=== PATIENT | female | born 1980 | race Caucasian/White ===

== ENCOUNTER 2021-10-17 10:23 | Emergency (ER) | payer MEDICAID ==
[~2021-10-17] VITALS: Ht 162 cm; Wt 71.0 kg
[~2021-10-17 10:23] MED LIST: ACHD5005 PO; AMOX-358 PO; BUSP10TA95 PO; DICY20TA PO; DOCU-239 PO; IBUP-844 PO; LAMO25TA8; NAPR-1071 PO; NITR-65 PO; PREN1TAB79 PO; PROM25TA14 PO; PYRI25TA3 PO; QUET300T71; Seroquel
--- NOTE | 2021-10-17 10:46 | ED GU-Female ---
General Chief Complaint: - Reproductive Stated Complaint: MISCARRIAGE Source: patient Exam Limitations: no limitations History of Present Illness Date Seen by Provider: Oct 17, 2021 Time Seen by Provider: 10:26 Initial Comments 41yoF that is coming in due to a miscarriage. She had confirmed miscarriage at roughly 10 weeks and 6 days. Yesterday roughly 14 weeks and she completed the miscarriage at home. She is here for [facility] due to her blood type being B-. She has had that with each , and was told that she needed to have it within 72 hours of the miscarriage. She is denying any significant vaginal bleeding now, no abdominal pain, nausea, vomiting, fever, chills, weakness, numbness, or any other concerns. She went in for an appointment yesterday for consult for D&C. She had 1 D&C roughly in 2001 Allergies and Home Medications Allergies Coded Allergies: sulfamethoxazole (Verified Allergy, Unknown, 10/17/21) trimethoprim (Verified Allergy, Unknown, 10/17/21) Patient Home Medication List Home Medication List Reviewed: Yes Review of Systems Review of Systems Constitutional: No fever EENTM: No blurred vision Respiratory: no symptoms reported Cardiovascular: no symptoms reported Gastrointestinal: no symptoms reported Genitourinary: no symptoms reported Musculoskeletal: no symptoms reported Skin: no symptoms reported Psychiatric/Neurological: No Symptoms Reported Endocrine: No Symptoms Reported Hematologic/Lymphatic: No Symptoms Reported All Other Systemes Reviewed Negative Unless Noted: Yes Past Ghtxnil-Rdabcf-Hvnuqe Hx Patient Social History Tobacco Use?: Yes Past Medical History Surgeries: Yes (D&C) Physical Exam Vital Signs Vital Signs - First Documented 10/17/21 10:25 Temp 36.5 Pulse 73 Resp 18 B/P (MAP) 112/73 (86) Pulse Ox 100 O2 Delivery Room Air Capillary Refill : Height, Weight, BMI Height: '" Weight: lbs. oz. kg; BMI Method: General Appearance: WD/WN, no apparent distress HEENT: PERRL/EOMI, normal ENT inspection, pharynx normal Neck: non-tender, full range of motion, supple, normal inspection Cardiovascular: regular rate, rhythm, no edema, no murmur Respiratory: chest non-tender, lungs clear, normal breath sounds, no respiratory distress, no accessory muscle use Gastrointestinal: normal bowel sounds, non tender, soft; No distended, No guarding, No rebound Back: normal inspection, no CVA tenderness Extremities: normal range of motion, non-tender, normal inspection, no pedal edema, no calf tenderness, normal capillary refill Neurologic/Psychiatric: no motor/sensory deficits, alert, normal mood/affect Skin: normal color, warm/dry Lymphatic: no adenopathy Progress/Results/Core Measures Suspected Sepsis SIRS Temperature: Pulse: Respiratory Rate: Blood Pressure / Mean: Results/Orders My Orders Orders - BERRY PEREIRA MD Urine Bedside (10/17/21 10:33) Vital Signs/I&O 10/17/21 10:25 Temp 36.5 Pulse 73 Resp 18 B/P (MAP) 112/73 (86) Pulse Ox 100 O2 Delivery Room Air Capillary Refill : Progress Note : Progress Note 41-year-old female with above history coming in after a miscarriage in the setting of having the negative blood needing RhoGAM. ABCs were intact and vitals were stable on presentation. Unfortunately we do not have RhoGAM in [place] and also we don't have blood bank, so are unable to confirm her blood type. Update, I set up for transport for [facility], the patient says she would not have the ability to get back home. She has no friends that have gas that can drive her. I offered an ambulance there is so that she can at least get the RhoGAM in a timely manner. She says that she will try to contact somewhere friends and try to get there at some other time within the next 72 hours. She is able to fully verbalize back to me my concerns that if she does not get RhoGAM in a timely manner, future pregnancies could result in miscarriage. She understands this. Departure Impression Primary Impression: Miscarriage Disposition: 01 HOME, SELF-CARE Condition: Stable Departure-Patient Inst. Decision time for Depature: 10:57 Referrals: SELFDEISI MD (PCP) Primary Care Physician Patient Instructions: Miscarriage (DC) Add. Discharge Instructions: Please present to the nearest [facility] as soon as you can to try to get RhoGAM, [facility] does have information and is expecting you if that is more convenient for you Work/School Note: Work Release Form Date Seen in the Emergency Department: Oct 17, 2021 Return to Work: Oct 18, 2021 Restrictions: No Restrictions BERRY PEREIRA MD Oct 17, 2021 10:46
[2021-10-17 11:00] VITALS: BP 112/73
== END 2021-10-17 11:00 | disposition home or self-care (01) ==
LOC: EDUNIT# 10:23 → ER FS 10:28
DX: O03.9 Complete or unspecified spontaneous abortion without complication (principal)
CPT/HCPCS: 99282

== ENCOUNTER 2022-02-04 09:22 | Emergency (ER) | payer MEDICAID ==
[~2022-02-04] VITALS: Ht 162.5 cm; Wt 71.0 kg
--- NOTE | 2022-02-04 09:50 | ED Respiratory ---
General Chief Complaint: COVID19 Suspect/Confirmed Stated Complaint: LETHARGY History of Present Illness Date Seen by Provider: Feb 04, 2022 Time Seen by Provider: 09:49 Initial Comments 41-year-old female presents with just generalized malaise, feels dizzy. She thinks she might be dehydrated. She does have a family member with an illness. She denies chest pain, shortness of breath. Her symptoms are very vague. No reports of fever or other systemic complaints. Allergies and Home Medications Allergies Coded Allergies: sulfamethoxazole (Verified Allergy, Unknown, 10/17/21) trimethoprim (Verified Allergy, Unknown, 10/17/21) Patient Home Medication List Home Medication List Reviewed: Yes Buspirone HCl (Buspirone HCl) 10 Mg Tablet, 10 MG PO BID, (Reported) Entered as Reported by: SAM SHARMA on 12/17/181757 Docusate Sodium (Dok) 100 Mg Capsule, 100 MG PO BID PRN for CONSTIPATION-1ST LINE Prescribed by: BUZZ JOE on 07/01/201952 Hydrocodone Bit/Acetaminophen (HYDROcodone/APAP 5 MG/325 MG TAB) 1 Tab Tab, 1-2 EA PO Q6HR PRN for PAIN-MODERATE (5-7) Prescribed by: BUZZ JOE on 07/01/201952 Ibuprofen (Ibu) 600 Mg Tablet, 600 MG PO Q6H Prescribed by: BUZZ JOE on 07/01/201952 Vit W-Ca,Fe,FA(<1 mg) ( Vitamins) 1 Each Tablet, 1 EACH PO DAILY, (Reported) Entered as Reported by: BESSIE BAE on 05/27/20 141 Pyridoxine HCl (Vitamin B-6) 25 Mg Tablet, 25 MG PO DAILY, (Reported) Entered as Reported by: BESSIE BAE on 05/27/20 141 Review of Systems Review of Systems Constitutional: No chills; dizziness; No fever; malaise EENTM: no symptoms reported Respiratory: no symptoms reported Cardiovascular: no symptoms reported Gastrointestinal: no symptoms reported Genitourinary: no symptoms reported Musculoskeletal: no symptoms reported Skin: no symptoms reported Psychiatric/Neurological: No Symptoms Reported Past Nkczwbh-Dcgemo-Nmgqns Hx Immunizations Up To Date First/Initial COVID19 Vaccinat: 2020 Seasonal Allergies Seasonal Allergies: No Past Medical History Surgery/Hospitalization HX: D&C Surgeries: Yes (D&C) Respiratory: No Cardiac: No Neurological: No Genitourinary: No Gastrointestinal: No Musculoskeletal: Yes Chronic Back Pain Endocrine: No HEENT: No Cancer: No Psychosocial: Yes Depression Integumentary: No Blood Disorders: No Physical Exam Vital Signs - First Documented 02/04/22 09:56 Temp 36.3 Pulse 57 Resp 16 B/P (MAP) 138/80 (99) Pulse Ox 100 O2 Delivery Room Air Capillary Refill : Height: 5'4.00" Weight: 168lbs. oz. 76.219233sg; 27.00 BMI Method:Stated General Appearance: WD/WN, no apparent distress HEENT: PERRL/EOMI, normal ENT inspection Neck: supple Respiratory: lungs clear, normal breath sounds, no respiratory distress Cardiovascular: normal peripheral pulses, regular rate, rhythm Gastrointestinal: non tender, soft Extremities: normal range of motion, non-tender Neurologic/Psychiatric: alert, normal mood/affect, oriented x 3 Skin: normal color, warm/dry Progress/Results/Core Measures Suspected Sepsis SIRS Temperature: Pulse: Respiratory Rate: Laboratory Tests 02/04/22 10:15: White Blood Count 9.6 Blood Pressure / Mean: Laboratory Tests 02/04/22 10:15: Creatinine 0.73, Platelet Count 269, Total Bilirubin 0.2 Results/Orders Lab Results Laboratory Tests Test 02/04/22 09:40 02/04/22 10:15 02/04/22 10:31 Range/Units SARS-CoV-2 RNA (RT-PCR) Not Detected Not Detecte White Blood Count 9.6 4.3-11.0 10^3/uL Red Blood Count 4.82 3.80-5.11 10^6/uL Hemoglobin 13.5 11.5-16.0 g/dL Hematocrit 40 35-52 % Mean Corpuscular Volume 82 80-99 fL Mean Corpuscular Hemoglobin 28 25-34 pg Mean Corpuscular Hemoglobin Concent 34 32-36 g/dL Red Cell Distribution Width 14.3 10.0-14.5 % Platelet Count 269 130-400 10^3/uL Mean Platelet Volume 11.0 9.0-12.2 fL Immature Granulocyte % (Auto) 0 % Neutrophils (%) (Auto) 62 42-75 % Lymphocytes (%) (Auto) 30 12-44 % Monocytes (%) (Auto) 6 0-12 % Eosinophils (%) (Auto) 2 0-10 % Basophils (%) (Auto) 0 0-10 % Neutrophils # (Auto) 6.0 1.8-7.8 10^3/uL Lymphocytes # (Auto) 2.9 1.0-4.0 10^3/uL Monocytes # (Auto) 0.5 0.0-1.0 10^3/uL Eosinophils # (Auto) 0.2 0.0-0.3 10^3/uL Basophils # (Auto) 0.0 0.0-0.1 10^3/uL Immature Granulocyte # (Auto) 0.0 0.0-0.1 10^3/uL Sodium Level 139 135-145 MMOL/L Potassium Level 4.0 3.6-5.0 MMOL/L Chloride Level 104 98-107 MMOL/L Carbon Dioxide Level 24 21-32 MMOL/L Anion Gap 11 5-14 MMOL/L Blood Urea Nitrogen 11 7-18 MG/DL Creatinine 0.73 0.60-1.30 MG/DL Estimat Glomerular Filtration Rate 105 BUN/Creatinine Ratio 15 Glucose Level 91 70-105 MG/DL Calcium Level 8.8 8.5-10.1 MG/DL Corrected Calcium 8.7 8.5-10.1 MG/DL Total Bilirubin 0.2 0.1-1.0 MG/DL Aspartate Amino Transf (AST/SGOT) 16 5-34 U/L Alanine Aminotransferase (ALT/SGPT) 11 0-55 U/L Alkaline Phosphatase 53 40-136 U/L C-Reactive Protein < 0.30 <0.50 MG/DL Total Protein 6.7 6.4-8.2 GM/DL Albumin 4.1 3.2-4.5 GM/DL Urine Color YELLOW Urine Clarity CLEAR Urine pH 6.0 5-9 Urine Specific [place] 1.010 L 1.016-1.022 Urine Protein NEGATIVE NEGATIVE Urine Glucose (UA) NEGATIVE NEGATIVE Urine Ketones NEGATIVE NEGATIVE Urine Nitrite NEGATIVE NEGATIVE Urine Bilirubin NEGATIVE NEGATIVE Urine Urobilinogen 0.2 < = 1.0 MG/DL Urine Leukocyte Esterase 2+ H NEGATIVE Urine RBC (Auto) NEGATIVE NEGATIVE Urine RBC NONE /HPF Urine WBC 2-5 /HPF Urine Squamous Epithelial Cells 0-2 /HPF Urine Crystals NONE /LPF Urine Bacteria NEGATIVE /HPF Urine Casts NONE /LPF Urine Mucus NEGATIVE /LPF Urine Culture Indicated NO My Orders Orders - JAYY GRIFFITH DO Cbc With Automated Diff (02/04/22 09:56) Comprehensive Metabolic Panel (02/04/22 09:56) Ua Culture If Indicated (02/04/22 09:56) Crp Fs (02/04/22 09:56) Ns Iv 1000 Ml (Sodium Chloride 0.9%) (02/04/22 09:56) Covid 19 Inhouse Test (02/04/22 09:57) Vital Signs/I&O 02/04/22 02/04/22 09:56 11:38 Temp 36.3 36.3 Pulse 57 62 Resp 16 16 B/P (MAP) 138/80 (99) 142/75 Pulse Ox 100 100 O2 Delivery Room Air Room Air Capillary Refill : Progress Note : Progress Note Patient with no acute findings on physical exam. Patient is no signs of dehydration or significant illness. Patient is negative for COVID with no acute findings on labs. Patient likely has a viral syndrome since her son has some similar type symptoms. Patient stable and discharged Departure Impression Primary Impression: Viral syndrome Disposition: 01 HOME, SELF-CARE Condition: Stable Departure-Patient Inst. Referrals: SELFDEISI MD (PCP) Primary Care Physician Patient Instructions: Viral Syndrome (DC) Add. Discharge Instructions: Tylenol or ibuprofen as needed for fever or body aches Encourage you to drink plenty of fluids Follow-up with your primary care provider as needed All discharge instructions reviewed with patient and/or family. Voiced understanding. JAYY GRIFFITH DO Feb 04, 2022 09:49
[2022-02-04] MEDS ORDERED: NS IV 1000 ML 1,000 ML IV STA (09:56)
[2022-02-04 10:22] LABS: BASOPHILS % (AUTO) 0 % (0-10); EOSINOPHILS # (AUTO) 0.2 10^3/uL (0.0-0.3); EOSINOPHILS % (AUTO) 2 % (0-10); HEMATOCRIT 40 % (35-52); HEMOGLOBIN 13.5 g/dL (11.5-16.0); LYMPHOCYTES # (AUTO) 2.9 10^3/uL (1.0-4.0); LYMPHOCYTES % (AUTO) 30 % (12-44); MEAN CORPUSCULAR HEMOGLOBIN 28 pg (25-34); MEAN CORPUSCULAR HGB CONC 34 g/dL (32-36); MEAN CORPUSCULAR VOLUME 82 fL (80-99); MONOCYTES # (AUTO) 0.5 10^3/uL (0.0-1.0); MONOCYTES % (AUTO) 6 % (0-12); NEUTROPHILS % (AUTO) 62 % (42-75); PLATELET COUNT 269 10^3/uL (130-400); WHITE BLOOD COUNT 9.6 10^3/uL (4.3-11.0)
[2022-02-04 10:37] LABS: BILIRUBIN,URINE NEGATIVE (NEGATIVE); CLARITY,URINE CLEAR; COLOR,URINE YELLOW; GLUCOSE, URINE (UA) NEGATIVE (NEGATIVE); KETONES,URINE NEGATIVE (NEGATIVE); LEUKOCYTE ESTERASE ,URINE 2+ (NEGATIVE); NITRITE,URINE NEGATIVE (NEGATIVE); PROTEIN,URINE NEGATIVE (NEGATIVE)
[2022-02-04 10:46] LABS: BACTERIA,URINE NEGATIVE /HPF; SQUAMOUS EPITHELIAL CELL,UR 0-2 /HPF
[2022-02-04 10:53] LABS: SODIUM 139 MMOL/L (135-145)
[2022-02-04 10:54] LABS: ALANINE AMINOTRANSFERASE 11 U/L (0-55); ALBUMIN 4.1 GM/DL (3.2-4.5); ALKALINE PHOSPHATASE 53 U/L (40-136); BILIRUBIN,TOTAL 0.2 MG/DL (0.1-1.0); BUN/CREATININE RATIO 15; CALCIUM 8.8 MG/DL (8.5-10.1); CARBON DIOXIDE 24 MMOL/L (21-32); CHLORIDE 104 MMOL/L (98-107); CREATININE SERUM 0.73 MG/DL (0.60-1.30); GFR ESTIMATED 105; GLUCOSE 91 MG/DL (70-105); TOTAL PROTEIN 6.7 GM/DL (6.4-8.2)
[2022-02-04 11:38] VITALS: BP 142/75
== END 2022-02-04 11:39 | disposition home or self-care (01) ==
LOC: EDUNIT# 09:22 → ER FS 09:24
DX: B34.9 Viral infection, unspecified (principal); Z20.822 Contact with and (suspected) exposure to COVID-19; Z28.311 Partially vaccinated for COVID-19
CPT/HCPCS: 36415; 80053; 81000; 85025; 86141; 87636

== ENCOUNTER 2022-05-06 05:28 | Outpatient (CLI) | payer MEDICAID ==
[~2022-05-06] VITALS: Ht 162.6 cm; Wt 75.7 kg
[~2022-05-06 05:28] MED LIST changes: -QUET300T71; +QUET300T90
[2022-05-11] MEDS ORDERED: RT-ALBUINH INH (10:06)
[2022-05-11] MEDS ORDERED: PREG50CA2 PO (10:06)
[2022-05-11] MEDS ORDERED: DESV50TA PO (10:06)
[2022-05-11] MEDS ORDERED: BUSP15TA60 PO (10:06)
[2022-05-11] MEDS ORDERED: DICY10CA12 PO (10:06)
[2022-05-11] MEDS ORDERED: MELO15TA39 PO (10:06)
[2022-05-11] MEDS ORDERED: MV-M1TAB20 PO (10:06)
[2022-05-11] MEDS ORDERED: QUET300T2 PO (10:10)
[2022-05-13] MEDS ORDERED: ACHD5005 PO (12:09)
== END 2022-05-11 10:10 | disposition home or self-care (01) ==
LOC: PREOP 05:28
PROVIDERS: ATTEND Surgery
DX: Z01.818 Encounter for other preprocedural examination (principal)

== ENCOUNTER 2022-05-13 08:29 | Day surgery (SDC) | payer MEDICAID ==
[~2022-05-13] VITALS: Ht 162.6 cm; Wt 75.7 kg
[2022-05-13] VITALS (9 sets, daily range): BP systolic 105–143; BP diastolic 53–92
[~2022-05-13 08:29] MED LIST changes: +BUSP15TA60 PO; +DESV50TA PO; +DICY10CA12 PO; +MELO15TA39 PO; +MV-M1TAB20 PO; +PREG50CA2 PO; +QUET300T2 PO; +RT-ALBUINH INH
[2022-05-13] MEDS ORDERED: LIDOCAINE/EPI 1%-1:100,000 (XYLOCAINE) 30ML ONE (09:04)
--- NOTE | 2022-05-13 09:35 | Progress Note-Pre Operative ---
Pre-Operative Progress Note Date of Available H&P: May 05, 2022 Date H&P Reviewed: May 13, 2022 Time H&P Reviewed: 09:35 History & Physical: H&P Reviewed, Patient Examed, No changes noted Pre-Operative Diagnosis: CHOLELITHASIS, RUQ ABDOMINAL PAIN BRIGIDO LAL DO May 13, 2022 09:35
[2022-05-13] MEDS: LACTATED RINGERS 1,000 ML IV PRN ×2 (09:40→11:20)
[2022-05-13] MEDS ORDERED: ceFAZolin INJECTION 2,000 MG ONE (09:41)
[2022-05-13] MEDS ORDERED: NS (IVPB) 50 ML ONE (09:41)
[2022-05-13] MEDS ORDERED: proPOfol 200 MG/20 ML (DIPRIVAN) VIAL IV ONE (09:47)
[2022-05-13] MEDS ORDERED: ONDANSETRON 4 MG/2 ML (SDV) Z0FRAN ONE ×2 (09:47→12:25)
[2022-05-13] MEDS ORDERED: fentaNYL INJ 100 MCG/2 ML AMP ONE (09:47)
[2022-05-13] MEDS ORDERED: MIDAZOLAM 2 MG/2 ML (VERSED) VIAL ONE (09:47)
[2022-05-13] MEDS ORDERED: GLYCOPYRROLATE 0.2 MG/ML (ROBINUL) 2 ML VIAL ONE (09:47)
[2022-05-13] MEDS ORDERED: ROCURONIUM 50 MG/5 ML (ZEMURON) VIAL IV ONE (09:47)
[2022-05-13] MEDS ORDERED: LIDOCAINE PF 2% 5 ML (XYLOCAINE) VIAL ONE (09:47)
[2022-05-13] MEDS ORDERED: NEOSTIGMINE (BLOXIVERZ ) 1 MG/1ML 10 ML VIAL ONE (09:48)
[2022-05-13] MEDS ORDERED: ceFAZolin INJECTION 2,000 MG in NS (IVPB) 50 ML IV ONE (10:00)
[2022-05-13] MEDS ORDERED: HYDROmorphone 2 MG/ML VIAL (DILAUDID) ONE (11:25)
[2022-05-13] MEDS ORDERED: ACHD5005 PO (12:09)
--- NOTE | 2022-05-13 12:10 | Discharge Inst-Simple/Standard ---
Discharge Inst-Standard Discharge Medications New, Converted or Re-Newed RX: RX on Chart Patient Instructions/Follow Up Plan of Care/Instructions/FU: 2 weeks [place] Activity as Tolerated: No Discharge Diet: Regular Diet Other Inst to Patient Follow up Appt: Make appointment for 2 weeks. Instructions: No lifting greater than 10 pounds. No strenuous activity. May shower in 24 hours, no tub bath or soaking. Use incentive spirometer at home as directed. No Smoking Skin/Wound Care: You have special glue over incision, it will fall off on it's own. Symptoms to Report: Appetite Changes, Extremity Discoloration, Numbness/Tingling, Swelling Increased, Bleeding Excessive, Eyesight Changes, Pain Increased, Urine Color Change, Constipation(Persistent), Fever over 101 degree F, Pain/Pressure in ches t, Urinating Difficulty, Cough Up/Vomit Blood, Heart Beat Irreg/Pounding, Pain/Pressure in jaw, Vaginal Bleeding Increase, Cramps in feet or legs, Lightheadedness, Pain/Pressure in shoulder, Diarrhea(Persistent), Memory Changes Suddenly, Questions/Concerns, Weight gain consecutive days, Dizziness/Fainting, Nausea/Vomiting, Shortness of Breath, Weight gain over 2 pounds. If eyes or skin turn yellow notify physician. If questions or concerns contact your physician Or seek help at emergency department. BRIGIDO LAL DO May 13, 2022 12:10
--- NOTE | 2022-05-13 12:12 | Progress Note-Post Operative ---
Post-Operative Progess Note Surgeon (s)/Cake Icer (s) Surgeon BRIGIDO LAL DO Cake Icer: Dr. Johnson to assist in retraction dissection and closure. Pre-Operative Diagnosis CHOLELITHASIS, RUQ ABDOMINAL PAIN Post-Operative Diagnosis same Procedure & Operative Findings Date of Procedure 05/13/22 Procedure Performed/Findings PROCEDURE: Laparoscopic cholecystectomy with intraoperative cholangiogram. COMPLICATIONS: None. PROCEDURE: The patient was taken to the operating suite and was prepped and draped in sterile fashion. A surgical pause was performed. Just superior to the umbilicus, a 12 mm incision was made. Dissection was taken down to the fascia, which was then scored and grasped with a Taran and the abdomen was then entered. A 0 Vicryl suture was placed in a [id number] fashion and a Huertas trocar was placed and secured. Pneumoperitoneum was achieved. A 5mm trochar place in the subxyphoid and 2 in the right upper quadrant. The gallbladder was then grasped and elevated. The cystic duct, and cystic artery were then dissected out. Clip was placed on the distal portion of the cystic duct which was then partially transected. An arrow catheter was inserted into the duct. The cholangiogram was then performed. No filing defects and contrast made its way into the duodenum. Catheter removed. Clips were placed on proximal portion of the cystic duct and then the duct was then transected. Clips were placed along the proximal and distal portion of the cystic artery which was then transected. Hook cautery was used to dissect the gallbladder from the gallbladder fossa achieving hemostasis. The gallbladder was placed in an Endobag and removed through the 12 mm trocar site. The abdomen was then reinspected. Copious amounts of irrigation were used to irrigate the abdomen and there were no signs of active bleeding. Place a piece of Surgicel in to the gallbladder fossa. Hemostasis had been achieved. The 12 mm fascial defect was then closed with 0 Vicryl suture that had been placed in a [id number] fashion. The abdomen was then desufflated, the trocars were removed. The abdomen was then washed and dried. The skin was then closed using 4-0 Monocryl in a subcuticular fashion. The abdomen was washed and dried and Skin Affix was place over incisions. Patient tolerated the procedure well without any complications and was taken to the recovery room in stable condition. Anesthesia Type general Estimated Blood Loss Estimated blood loss (mL): minimal Specimens/Packing Specimens Removed gallbladder BRIGIDO LAL DO May 13, 2022 12:12
[2022-05-13] MEDS ORDERED: HYDROmorphone 2 MG/ML VIAL (DILAUDID) IV ONE (12:30)
[2022-05-13] MEDS ORDERED: fentaNYL INJ 100 MCG/2 ML AMP IVP ONE (12:30)
[2022-05-13] MEDS ORDERED: ONDANSETRON 4 MG/2 ML (SDV) Z0FRAN IVP PRN (12:30)
[2022-05-13] MEDS ORDERED: SEVOFLURANE (ULTANE) 15 ML INHAL SOLN ONE (12:31)
--- NOTE | 2022-05-13 18:06 | Diagnostic Imaging Report ---
INDICATION: Cholecystectomy. Intraoperative cholangiogram. COMPARISON: None available. IMPRESSION: Cini images show contrast opacifying the common bile duct which refluxes into normal caliber intrahepatic radicals and fills portions of the duodenum. No filling defects to indicate choledocholithiasis. 12 seconds of fluoroscopy time was utilized. Please see procedure report for more details. Dictated by: Dictated on workstation # [id number]
== END 2022-05-13 13:28 | disposition home or self-care (01) ==
LOC: SDC 08:29
PROVIDERS: ATTEND Surgery
DX: K80.10 Calculus of gallbladder with chronic cholecystitis without obstruction (principal); F17.210 Nicotine dependence, cigarettes, uncomplicated; Z86.16 Personal history of COVID-19
CPT/HCPCS: 76000; 84703; 87081

== ENCOUNTER 2022-05-18 15:09 | Inpatient (IN) | payer MEDICAID ==
[~2022-05-18] VITALS: Ht 162.6 cm; Wt 75.6 kg
[2022-05-18] MEDS ORDERED: NS IV 1000 ML 1,000 ML IV STA (15:17)
[2022-05-18] MEDS ORDERED: morphine INJ 10 MG/ML 1ML (SYR OR VIAL) IVP STA (15:17)
[2022-05-18 15:27] LABS: BASOPHILS % (AUTO) 0 % (0-10); EOSINOPHILS # (AUTO) 0.2 10^3/uL (0.0-0.3); EOSINOPHILS % (AUTO) 1 % (0-10); HEMATOCRIT 40 % (35-52); LYMPHOCYTES # (AUTO) 3.1 10^3/uL (1.0-4.0); LYMPHOCYTES % (AUTO) 18 % (12-44); MEAN CORPUSCULAR HEMOGLOBIN 30 pg (25-34); MEAN CORPUSCULAR HGB CONC 35 g/dL (32-36); MEAN CORPUSCULAR VOLUME 86 fL (80-99); MEAN PLATELET VOLUME 10.5 fL (9.0-12.2); MONOCYTES # (AUTO) 1.2 10^3/uL (0.0-1.0); MONOCYTES % (AUTO) 7 % (0-12); NEUTROPHILS # (AUTO) 12.2 10^3/uL (1.8-7.8); NEUTROPHILS % (AUTO) 73 % (42-75); PLATELET COUNT 314 10^3/uL (130-400); WHITE BLOOD COUNT 16.7 10^3/uL (4.3-11.0)
[2022-05-18] MEDS ORDERED: NS 100 ML (IVPB) BAG IV ONE (15:30)
[2022-05-18] MEDS ORDERED: HOLD METFORMIN - RECEIVED CONTRAST 20 ML VIAL IV SCH (15:30)
[2022-05-18] MEDS ORDERED: IOHEXOL 350 MG/ML 100 ML (OMNIPAQUE 350) VIAL IV ONE (15:30)
[2022-05-18 15:53] LABS: BILIRUBIN,TOTAL 0.4 MG/DL (0.1-1.0); CALCIUM 9.5 MG/DL (8.5-10.1); CREATININE SERUM 0.59 MG/DL (0.60-1.30); POTASSIUM 3.5 MMOL/L (3.6-5.0)
[2022-05-18 15:54] LABS: ALBUMIN 4.2 GM/DL (3.2-4.5); TOTAL PROTEIN 7.5 GM/DL (6.4-8.2)
--- NOTE | 2022-05-18 15:59 | ED Abdominal Pain ---
General Chief Complaint: Abdominal/GI Problems Stated Complaint: ABD PAIN Source of Information: Patient, EMS, Old Records (surgery notes from 05/[address] Lal) Exam Limitations: No Limitations History of Present Illness Date Seen by Provider: May 18, 2022 Time Seen by Provider: 15:09 Initial Comments 41 yo female presenting by EMS from home due to increasing right upper quadrant abdominal pain. She had laparoscopic cholecystectomy on May [address] Lal and felt like she was healing well and doing well. She did not feel like she was having a lot of pain and was getting back to more normal activities. She stated yesterday she had lifted her children in and out of crib and playpen and felt something pull. She has had increasing pain since then. The pain was more severe today and was not improving with taking her hydrocodone that she was prescribed. She denies having nausea, vomiting, constipation, diarrhea, pain with urination, fever, chills, chest pain, shortness of breath. She had the pain in the right upper quadrant and it was radiating to her right shoulder b lade area. Timing/Duration: 1-2 Days Severity/Quality: Severe, Sharp Location: RUQ Radiation: Scapula, Shoulder Activities at Onset: Activity (Lifting her children) Modifying Factors: Worsens With Coughing, Worsens With Movement, Worsens With Palpation Associated Symptoms: No Chest Pain, No Diaphoresis, No Fever/Chills, No Fatigue, No Headache, No Heartburn, No Nausea/Vomiting, No Rash, No Shortness of Air, No Swelling/Mass in Abdomen, No Syncope, No Weakness Allergies and Home Medications Allergies Coded Allergies: sulfamethoxazole (Verified Allergy, Unknown, RASH, 05/11/22) trimethoprim (Verified Allergy, Unknown, RASH, 05/11/22) Patient Home Medication List Home Medication List Reviewed: Yes Albuterol Sulfate (Ventolin Hfa) 1 Puff Puff, 2 PUFF INH Q4H, (Reported) Entered as Reported by: OLINDA GARNICA on 05/11/22 1006 Buspirone HCl (Buspirone HCl) 15 Mg Tablet, 15 MG PO BID, (Reported) Entered as Reported by: OLINDA GARNICA on 05/11/22 1006 Buspirone HCl (Buspirone HCl) 15 Mg Tablet, 15 MG PO BID, (Reported) Entered as Reported by: OLINDA GARNICA on 05/11/22 1006 Desvenlafaxine Succinate (Pristiq ER) 50 Mg Tab.er.24h, 50 MG PO DAILY, (Repo rted) Entered as Reported by: OLINDA GARNICA on 05/11/22 1006 Dicyclomine HCl (Dicyclomine HCl) 10 Mg Capsule, 10 MG PO BID, (Reported) Entered as Reported by: OLINDA GARNICA on 05/11/22 1006 Hydrocodone/Acetaminophen (Hydrocodone-Acetamin 5-325 mg) 5 Mg-325 Mg Tablet, 1 EACH PO Q4H PRN for PAIN-MODERATE (5-7) Prescribed by: BRIGIDO LAL on 05/13/22 1209 Meloxicam (Meloxicam) 15 Mg Tablet, 15 MG PO DAILY, (Reported) Entered as Reported by: OLINDA GARNICA on 05/11/22 1006 Mv-Mn/Iron/FA/Herbal Cmplx#190 (Vitamin D3 Complete Caplet) 18 Mg Iron-800 Mcg- 150 Mg Tablet, 1 EACH PO UD, (Reported) Entered as Reported by: OLINDA GARNICA on 05/11/22 100 Pregabalin (Lyrica) 50 Mg Capsule, 50 MG PO TID, (Reported) Entered as Reported by: OLINDA GARNICA on 05/11/22 100 Quetiapine Fumarate (Seroquel) 300 Mg Tablet, 300 MG PO HS, (Reported) Entered as Reported by: OLINDA GARNICA on 05/11/22 1010 Discontinued Medications Buspirone HCl (Buspirone HCl) 10 Mg Tablet, 10 MG PO BID, (Reported) Discontinued Reason: Prescription changed Entered as Reported by: SAM SHARMA on 12/17/18 1758 Docusate Sodium (Dok) 100 Mg Capsule, 100 MG PO BID PRN for CONSTIPATION-1ST LINE Discontinued Reason: No Longer Taking Prescribed by: BUZZ JOE on 07/01/201952 Hydrocodone Bit/Acetaminophen (HYDROcodone/APAP 5 MG/325 MG TAB) 1 Tab Tab, 1-2 EA PO Q6HR PRN for PAIN-MODERATE (5-7) Discontinued Reason: No Longer Taking Prescribed by: BUZZ JOE on 07/01/201952 Ibuprofen (Ibu) 600 Mg Tablet, 600 MG PO Q6H Discontinued Reason: No Longer Taking Prescribed by: BUZZ JOE on 07/01/201952 Vit W-Ca,Fe,FA(<1 mg) ( Vitamins) 1 Each Tablet, 1 EACH PO DAILY, (Reported) Discontinued Reason: No Longer Taking Entered as Reported by: BESSIE BAE on 05/27/20 1412 Pyridoxine HCl (Vitamin B-6) 25 Mg Tablet, 25 MG PO DAILY, (Reported) Discontinued Reason: No Longer Taking Entered as Reported by: BESSIE BAE on 05/27/20 141 Review of Systems Review of Systems Constitutional: No chills, No fever EENTM: No Symptoms Reported Respiratory: No Symptoms Reported Cardiovascular: No Symptoms Reported Gastrointestinal: See HPI Genitourinary: See HPI Musculoskeletal: see HPI Skin: change in color (Faint bruising at sites of laparoscopic surgery. There is no increased warmth, bright redness, fluctuance, drainage.) Psychiatric/Neurological: Anxiety Endocrine: No Symptoms Reported Hematologic/Lymphatic: Denies Blood Clots, Denies Easy Bleeding, Denies Easy Bruising Past Rbfwjhc-Unzrbh-Oiovzx Hx Immunizations Up To Date Tetanus Booster (TDap): Unknown First/Initial COVID19 Vaccinat: 2020 Second COVID19 Vaccination Mikie: 2020 Third COVID19 Vaccination Date: 2020 Seasonal Allergies Seasonal Allergies: No Past Medical History Surgery/Hospitalization HX: D&C;Depression; Bipolar; Chronic back pain; IBS; Cesearean; Surgeries: Yes (D&C, EXCISION RIGHT BREAST SPIDER BITE) Section, Gallbladder (05/13/2022) Respiratory: No Cardiac: No Neurological: No Genitourinary: No Gastrointestinal: Yes Gastroesophageal Reflux, Irritable Bowel Musculoskeletal: Yes Chronic Back Pain Endocrine: No HEENT: No Cancer: No Psychosocial: Yes (MANIC DEP W/PHYSCHOTIC FEATURE, PARONOID PERSONALITY DISORDER) Bipolar, Depression Integumentary: No Blood Disorders: No Physical Exam Vital Signs Vital Signs - First Documented 05/18/22 15:12 Temp 37.2 Pulse 82 Resp 20 B/P (MAP) 186/89 (121) Pulse Ox 98 O2 Delivery Room Air Capillary Refill : Height/Weight/BMI Height: 5'4.00" Weight: 168lbs. oz. 76.859791uy; 28.63 BMI Method:Stated General Appearance: WD/WN, moderate distress HEENT: PERRL/EOMI, pharynx normal Neck: non-tender, full range of motion, supple, normal inspection Respiratory: chest non-tender, lungs clear, normal breath sounds, no respirat ory distress, no accessory muscle use Cardiovascular: normal peripheral pulses, regular rate, rhythm Gastrointestinal: normal bowel sounds, soft, no pulsatile mass; No distended, No guarding, No rebound; tenderness (Right upper quadrant tender to palpation) Rectal: deferred Extremities: normal range of motion, non-tender, no calf tenderness, normal capillary refill Neurologic/Psychiatric: alert, oriented x 3 Skin: warm/dry, ecchymosis (Faint bruising around the laparoscopic sites without increased warmth, increased redness, fluctuance, or drainage.) Focused Exam Lactate Level 05/18/22 16:55: Lactic Acid Level 1.00 Lactic Acid Level Laboratory Tests Test 05/18/22 16:55 Lactic Acid Level 1.00 MMOL/L (0.50-2.00) Progress/Results/Core Measures Results/Orders Lab Results Laboratory Tests Test 05/18/22 15:17 05/18/22 16:13 05/18/22 16:55 Range/Units White Blood Count 16.7 H 4.3-11.0 10^3/uL Red Blood Count 4.66 3.80-5.11 10^6/uL Hemoglobin 14.0 11.5-16.0 g/dL Hematocrit 40 35-52 % Mean Corpuscular Volume 86 80-99 fL Mean Corpuscular Hemoglobin 30 25-34 pg Mean Corpuscular Hemoglobin Concent 35 32-36 g/dL Red Cell Distribution Width 14.1 10.0-14.5 % Platelet Count 314 130-400 10^3/uL Mean Platelet Volume 10.5 9.0-12.2 fL Immature Granulocyte % (Auto) 0 % Neutrophils (%) (Auto) 73 42-75 % Lymphocytes (%) (Auto) 18 12-44 % Monocytes (%) (Auto) 7 0-12 % Eosinophils (%) (Auto) 1 0-10 % Basophils (%) (Auto) 0 0-10 % Neutrophils # (Auto) 12.2 H 1.8-7.8 10^3/uL Lymphocytes # (Auto) 3.1 1.0-4.0 10^3/uL Monocytes # (Auto) 1.2 H 0.0-1.0 10^3/uL Eosinophils # (Auto) 0.2 0.0-0.3 10^3/uL Basophils # (Auto) 0.0 0.0-0.1 10^3/uL Immature Granulocyte # (Auto) 0.1 0.0-0.1 10^3/uL Neutrophils % (Manual) 70 % Lymphocytes % (Manual) 20 % Monocytes % (Manual) 9 % Eosinophils % (Manual) 1 % Basophils % (Manual) 0 % Band Neutrophils 0 % Sodium Level 138 135-145 MMOL/L Potassium Level 3.5 L 3.6-5.0 MMOL/L Chloride Level 102 98-107 MMOL/L Carbon Dioxide Level 24 21-32 MMOL/L Anion Gap 12 5-14 MMOL/L Blood Urea Nitrogen 13 7-18 MG/DL Creatinine 0.59 L 0.60-1.30 MG/DL Estimat Glomerular Filtration Rate 115 BUN/Creatinine Ratio 22 Glucose Level 101 70-105 MG/DL Calcium Level 9.5 8.5-10.1 MG/DL Corrected Calcium 9.3 8.5-10.1 MG/DL Total Bilirubin 0.4 0.1-1.0 MG/DL Aspartate Amino Transf (AST/SGOT) 15 5-34 U/L Alanine Aminotransferase (ALT/SGPT) 19 0-55 U/L Alkaline Phosphatase 73 40-136 U/L Total Protein 7.5 6.4-8.2 GM/DL Albumin 4.2 3.2-4.5 GM/DL Lipase 15 8-78 U/L Urine Color YELLOW Urine Clarity CLEAR Urine pH 7.0 5-9 Urine Specific [place] 1.010 L 1.016-1.022 Urine Protein NEGATIVE NEGATIVE Urine Glucose (UA) NEGATIVE NEGATIVE Urine Ketones NEGATIVE NEGATIVE Urine Nitrite NEGATIVE NEGATIVE Urine Bilirubin NEGATIVE NEGATIVE Urine Urobilinogen 0.2 < = 1.0 MG/DL Urine Leukocyte Esterase TRACE H NEGATIVE Urine RBC (Auto) 1+ H NEGATIVE Urine RBC RARE /HPF Urine WBC 10-25 H /HPF Urine Squamous Epithelial Cells 2-5 /HPF Urine Crystals NONE /LPF Urine Bacteria TRACE /HPF Urine Casts NONE /LPF Urine Mucus NEGATIVE /LPF Urine Culture Indicated YES Lactic Acid Level 1.00 0.50-2.00 MMOL/L My Orders Orders - RIA JOSHUA MD Comprehensive Metabolic Panel (05/18/22 15:17) Lipase (05/18/22 15:17) Ua Culture If Indicated (05/18/22 15:17) Ed Iv/Invasive Line Start (05/18/22 15:17) Cbc With Automated Diff (05/18/22 15:17) Ct Abdomen/Pelvis W (05/18/22 15:17) Ns Iv 1000 Ml (Sodium Chloride 0.9%) (05/18/22 15:17) Morphine Injection (Morphine Injection (05/18/22 15:17) Iohexol Injection (Omnipaque 350 Mg/Ml 1 (05/18/22 15:30) Received Contrast (Hold Metformin- Contr (05/18/22 15:30) Ns (Ivpb) (Sodium Chloride 0.9% Ivpb Bag (05/18/22 15:30) Manual Differential (05/18/22 15:17) Fentanyl Inj (Sublimaze Injection) (05/18/22 16:12) Urine Culture (05/18/22 16:13) Blood Culture (05/18/22 16:41) Lactic Acid Analyzer (05/18/22 16:41) Piperacillin Sodium/Tazobactam (Zosyn Vi (05/18/22 16:42) Hydromorphone Injection (Dilaudid Inject (05/18/22 17:09) Lactated Ringers (Lr 1000 Ml Iv Solution (05/18/22 17:09) Medications Given in ED Current Medications Medications Dose Ordered Sig/Saige Route Start Time Stop Time Status Last Admin Dose Admin Iohexol 100 ml ONCE ONCE IV 05/18/22 15:30 05/18/22 15:31 DC 05/18/22 15:49 80 ML Sodium Chloride 100 ml ONCE ONCE IV 05/18/22 15:30 05/18/22 15:31 DC 05/18/22 15:49 100 ML Vital Signs/I&O 05/18/22 05/18/22 15:12 18:48 Temp 37.2 Pulse 82 88 Resp 20 16 B/P (MAP) 186/89 (121) 179/87 Pulse Ox 98 96 O2 Delivery Room Air Room Air Progress Progress Note #1: Progress Note Potential life-threatening conditions of abdominal abscess, bile leak, perforated viscus, pancreatitis, acute liver failure, acute renal failure, sepsis. Order labs to include CBC, chemistry, lipase, urinalysis. Order CT scan of the abdomen and pelvis with IV contrast to evaluate for fluid collection, bowel perforation, obstruction, colitis, diverticulitis, abscess at gallbladder fossa, pancreatitis. Give normal saline 1 L IV fluid bolus for hydration, morphine 4 mg IV x1 for pain since she had already taken hydrocodone around 1 PM. She denied having nausea or vomiting so no antiemetics were ordered but advised patient if she had any change in this to let us know and I can add the Zofran and on her medications. Progress Note #2: Progress Note CBC shows elevation of her white blood cell count to 16.7. She had no acute significant normality on her chemistry panel. Her liver enzymes were normal. She remained hemodynamically stable here in the ED. She was afebrile and not exhibiting signs of sepsis. She reports that the morphine has not helped much with her pain so we will try a dose of fentanyl 50 mcg IV x1. On my review and personal interpretation of the CT scan of her abdomen and pelvis with IV contrast it did appear that she had increased fluid in the gallbladder fossa area with surrounding inflammation. No definite signs of bowel perforation or pancreatitis. Awaiting radiology reading. Progress Note #3: Time: 16:33 Progress Note I reviewed the radiologist report on the CT scan of the abdomen and pelvis with IV contrast. They reported fluid collection in the gallbladder fossa and recommended HIDA scan for hepatobiliary evaluation. Concern for bile leak. I called and discussed the results with the surgeon Dr. Lal. I had reviewed his op note and report from May 13 when he performed her laparoscopic cholecystectomy. I reviewed the labs and CT findings with him. He recommended giving her Zosyn for potential infection and ordering a HIDA scan. Keep her n.p.o. for now and continue with IV fluids for hydration. Pain control and he requested that I write bridge orders for her as he was going into surgery. I reviewed the plan with the patient and she stated that the fentanyl had a little more for her pain but was still rating her pain 6 out of 10. We will try Dilaudid 0.5 mg IV and see if that does better. Updated her on staying n.p.o. as well as being admitted for IV fluids, antibiotics, nuclear medicine scan. She was agreeable with admission as she was still having severe pain. Diagnostic Imaging Diagonstic Imaging: CT Plain Films/CT/US/NM/MRI: abdomen, pelvis Comments [facility] [place] [place] NAME: JACOBY CARRASQUILLO REC#: [id number] PT STATUS: REG ER : 1980 PHYSICIAN: RIA JOSHUA MD ADMIT DATE: 05/18/22/ER FS Draft Date of Exam:05/18/22 CT ABDOMEN/PELVIS W PROCEDURE: CT abdomen and pelvis with contrast. TECHNIQUE: Multiple contiguous axial images were obtained through the abdomen and pelvis after administration of intravenous contrast. Auto Exposure Controls were utilized during the CT exam to meet ALARA standards for radiation dose reduction. All CT scans use one or more of the following dose optimizing techniques: automated exposure control, MA and/or KvP adjustment based on patient size and exam type or iterative reconstruction. INDICATION: Right upper quadrant abdominal pain. FINDINGS: There is mild hazy groundglass density in the lung bases which could be due to mild edema or pneumonitis. Small amount of gas is noted in the anterior mediastinum. Below the diaphragm, no focal hepatic abnormality is identified. There are surgical clips in the expected location of gallbladder fossa with fluid-containing structure extending caudally in the fossa. This may represent biloma or bile leak. Small amount of gas is associated with this collection of fluid. There is mild edema and/or inflammation along the hepatic flexure of the colon. No pancreatic, adrenal gland or splenic abnormality is identified. Several cortical cysts are noted in the upper pole of left kidney as well as in the lower pole of right kidney. There is no evidence of hydronephrosis. Unopacified bladder is unremarkable in appearance. No additional inflammation is identified. The appendix has a normal appearance. IMPRESSION: Fluid-containing structure in the gallbladder fossa may represent bile leak or developing biloma with mild adjacent edema and/or inflammation within the hepatic flexure of colon. Consideration could be given to hepatobiliary scan for assessment. Dictated on workstation # [id number] Dict: 05/18/22 1606 Trans: 05/18/22 1615 [id number] Interpreted by: BETH BLAND MD Electronically signed by: Reviewed: Reviewed by Me Departure Communication (Admissions) Time/Spoke to Admitting Phy: 16:34 D/w Dr. Lal about the presentation of patient and having increased pain with RUQ pain, elevated WBC count, normal LFTs and CT showing fluid in gallbladder fossa. will admit for pain control, keep NPO, order HIDA scan. Give Zosyn for her possible infection. Will add blood cultures and lactic acid. Impression Primary Impression: RUQ abdominal pain Additional Impression: S/P laparoscopic cholecystectomy Disposition: 30 STILL A PATIENT Condition: Stable Admissions Decision to Admit Reason: Admit from ER (General) Decision to Admit/Date: May 18, 2022 Time/Decision to Admit Time: 16:34 Departure-Patient Inst. Referrals: SELF,DEISI WHITTAKER (PCP/Family) Primary Care Physician RIA JOSHUA MD May 18, 2022 15:59
[2022-05-18] MEDS ORDERED: fentaNYL INJ 100 MCG/2 ML AMP IVP STA (16:12)
--- NOTE | 2022-05-18 16:16 | Diagnostic Imaging Report ---
PROCEDURE: CT abdomen and pelvis with contrast. TECHNIQUE: Multiple contiguous axial images were obtained through the abdomen and pelvis after administration of intravenous contrast. Auto Exposure Controls were utilized during the CT exam to meet ALARA standards for radiation dose reduction. All CT scans use one or more of the following dose optimizing techniques: automated exposure control, MA and/or KvP adjustment based on patient size and exam type or iterative reconstruction. INDICATION: Right upper quadrant abdominal pain. FINDINGS: There is mild hazy groundglass density in the lung bases which could be due to mild edema or pneumonitis. Small amount of gas is noted in the anterior mediastinum. Below the diaphragm, no focal hepatic abnormality is identified. There are surgical clips in the expected location of gallbladder fossa with fluid-containing structure extending caudally in the fossa. This may represent biloma or bile leak. Small amount of gas is associated with this collection of fluid. There is mild edema and/or inflammation along the hepatic flexure of the colon. No pancreatic, adrenal gland or splenic abnormality is identified. Several cortical cysts are noted in the upper pole of left kidney as well as in the lower pole of right kidney. There is no evidence of hydronephrosis. Unopacified bladder is unremarkable in appearance. No additional inflammation is identified. The appendix has a normal appearance. IMPRESSION: Fluid-containing structure in the gallbladder fossa may represent bile leak or developing biloma with mild adjacent edema and/or inflammation within the hepatic flexure of colon. Consideration could be given to hepatobiliary scan for assessment. Dictated by: Dictated on workstation # [id number]
[2022-05-18 16:22] LABS: BILIRUBIN,URINE NEGATIVE (NEGATIVE); CLARITY,URINE CLEAR; COLOR,URINE YELLOW; GLUCOSE, URINE (UA) NEGATIVE (NEGATIVE); KETONES,URINE NEGATIVE (NEGATIVE); LEUKOCYTE ESTERASE ,URINE TRACE (NEGATIVE); NITRITE,URINE NEGATIVE (NEGATIVE); PROTEIN,URINE NEGATIVE (NEGATIVE)
[2022-05-18 16:34] LABS: RBC,URINE RARE /HPF
[2022-05-18 16:35] LABS: BACTERIA,URINE TRACE /HPF
[2022-05-18] MEDS ORDERED: PIPERACILLIN SODIUM/TAZOBACTAM 4.5 GM in NS (IVPB) 100 ML IV STA (16:42)
[2022-05-18 17:04] LABS: BAND NEUTROPHILS 0 %; BASOPHILS % (MANUAL) 0 %; EOSINOPHILS % (MANUAL) 1 %; LYMPHOCYTES % (MANUAL) 20 %; MONOCYTES % (MANUAL) 9 %; NEUTROPHILS % (MANUAL) 70 %
[2022-05-18] MEDS ORDERED: HYDROmorphone 2 MG/ML VIAL (DILAUDID) IV STA (17:09)
[2022-05-18] MEDS ORDERED: LACTATED RINGERS 1,000 ML IV STA (17:09)
[2022-05-18] MEDS ORDERED: ONDANSETRON 4 MG/2 ML (SDV) Z0FRAN IV PRN (20:00)
[2022-05-18] MEDS: HYDROmorphone 2 MG/ML VIAL (DILAUDID) IV PRN ×2 (20:29→23:17)
[2022-05-18 20:30] VITALS: BP 157/88
[2022-05-18] MEDS: LACTATED RINGERS 1,000 ML IV SCH (20:31)
[2022-05-18] MEDS: PIPERACILLIN SODIUM/TAZOBACTAM 4.5 GM in NS (IVPB) 100 ML IV SCH (23:17)
[2022-05-18 23:26] VITALS: BP 147/96
[2022-05-19] MEDS: LACTATED RINGERS 1,000 ML IV SCH ×3 (01:56→20:03)
[2022-05-19] MEDS: HYDROmorphone 2 MG/ML VIAL (DILAUDID) IV PRN ×7 (01:56→20:17)
[2022-05-19 04:00] VITALS: BP 151/89
[2022-05-19 05:54] LABS: HEMATOCRIT 39 % (35-52); HEMOGLOBIN 13.4 g/dL (11.5-16.0); MEAN CORPUSCULAR HEMOGLOBIN 30 pg (25-34); MEAN CORPUSCULAR HGB CONC 34 g/dL (32-36); MEAN CORPUSCULAR VOLUME 88 fL (80-99); MEAN PLATELET VOLUME 10.6 fL (9.0-12.2); PLATELET COUNT 294 10^3/uL (130-400); WHITE BLOOD COUNT 17.5 10^3/uL (4.3-11.0)
[2022-05-19 06:05] LABS: ALBUMIN 3.9 GM/DL (3.2-4.5)
[2022-05-19 06:06] LABS: POTASSIUM 3.9 MMOL/L (3.6-5.0)
[2022-05-19 06:07] LABS: CALCIUM 9.1 MG/DL (8.5-10.1)
[2022-05-19 06:10] LABS: BILIRUBIN,TOTAL 0.8 MG/DL (0.1-1.0)
[2022-05-19 06:12] LABS: CREATININE SERUM 0.64 MG/DL (0.60-1.30)
--- NOTE | 2022-05-19 06:50 | Consultation - Surgery ---
ZHANNA WEINSTEIN 05/19/22 0650: History of Present Illness History of Present Illness Patient Consulted On(bobby/time) 05/19/22 06:41 Date Seen by Provider: May 19, 2022 Time Seen by Provider: 06:41 Reason for Visit: Abdominal Pain History of Present Illness 41 F with pmh of GERD and IBS s/p laproscopic cholecystectomy on 05/[address] Khan presents with 2 days of abdominal pain that she noticed after she began carrying her children. . Pain initially was sharp RUQ pain that radiates to rt shoulder blade and arm rated 9/10 and has since spread to LUQ that was not alleviated by her post-op hyodrocodone. Today, pts pain is 2/10 with appropriate pain control. Pt previously had no symptoms of pain after procedure on 05/13. Decreased intake of food and liquid since the start of the pain. Denies any n/v, SOB, CP, fever, chills, diarrhea, or urinary symptoms. NPO since midnight. Pt to have HIDA scan this morning. Allergies and Home Medications Allergies Coded Allergies: sulfamethoxazole (Verified Allergy, Unknown, RASH, 05/11/22) trimethoprim (Verified Allergy, Unknown, RASH, 05/11/22) Patient Home Medication List Home Medication List Reviewed: Yes Acetaminophen (Tylenol Extra Strength) 500 Mg Tablet, 1,000 MG PO Q8H PRN for PAIN-MILD (1-4), (Reported) Entered as Reported by: VELVET OVALLES on 05/19/221136 Last Action: Held Buspirone HCl (Buspirone HCl) 15 Mg Tablet, 15 MG PO BID, (Reported) Entered as Reported by: OLINDA GARNICA on 05/11/22 1006 Last Action: Continued Cholecalciferol (Vitamin D3) (Vitamin D3) 25 Mcg (1000 Unit) Capsule, 25 MCG PO DAILY, (Reported) Entered as Reported by: VELVET OVALLES on 05/19/221136 Last Action: Converted Cyanocobalamin (Vitamin B-12) (Vitamin B-12) 1,000 Mcg Tablet, 1,000 MCG PO DAILY, (Reported) Entered as Reported by: VELVET OVALLES on 05/19/227 Last Action: Continued Desvenlafaxine Succinate (Desvenlafaxine Succinate ER) 50 Mg Tab.er.24h, 50 MG PO DAILY, (Reported) Entered as Reported by: VELVET OVALLES on 05/19/221136 Last Action: Converted Dicyclomine HCl (Dicyclomine HCl) 10 Mg Capsule, 10 MG PO TID, (Reported) Entered as Reported by: OLINDA GARNICA on 05/11/221005 Last Action: Continued Hydrocodone/Acetaminophen (Hydrocodone-Acetamin 5-325 mg) 5 Mg-325 Mg Tablet, 1 TAB PO Q4H PRN for PAIN-MODERATE (5-7), (Reported) Entered as Reported by: VELVET OVALLES on 05/19/221136 Last Action: Held Meloxicam (Meloxicam) 15 Mg Tablet, 15 MG PO DAILY, (Reported) Entered as Reported by: OLINDA GARNICA on 05/11/221005 Last Action: Held Pregabalin (Pregabalin) 50 Mg Capsule, 50 MG PO TID, (Reported) Entered as Reported by: VELVET OVALLES on 05/19/221136 Last Action: Continued Quetiapine Fumarate (Quetiapine Fumarate) 300 Mg Tablet, 300 MG PO HS, (Reported) Entered as Reported by: VELVET OVALLES on 05/19/221136 Last Action: Converted Discontinued Medications Albuterol Sulfate (Ventolin Hfa) 1 Puff Puff, 2 PUFF INH Q4H, (Reported) Discontinued Reason: No Longer Taking Entered as Reported by: OLINDA GARNICA on 05/11/221005 Last Action: Discontinued Buspirone HCl (Buspirone HCl) 15 Mg Tablet, 15 MG PO BID, (Reported) Discontinued Reason: Duplicate Order Entered as Reported by: OLINDA GARNICA on 05/11/221005 Last Action: Discontinued Desvenlafaxine Succinate (Pristiq ER) 50 Mg Tab.er.24h, 50 MG PO DAILY, (Reported) Discontinued Reason: No Longer Taking Entered as Reported by: OLINDA GARNICA on 05/11/221005 Last Action: Discontinued Hydrocodone/Acetaminophen (Hydrocodone-Acetamin 5-325 mg) 5 Mg-325 Mg Tablet, 1 EACH PO Q4H PRN for PAIN-MODERATE (5-7) Discontinued Reason: No Longer Taking Prescribed by: BRIGIDO LAL on 05/13/22 1209 Last Action: Discontinued Mv-Mn/Iron/FA/Herbal Cmplx#190 (Vitamin D3 Complete Caplet) 18 Mg Iron-800 Mcg- 150 Mg Tablet, 1 EACH PO UD, (Reported) Discontinued Reason: No Longer Taking Entered as Reported by: OLINDA GARNICA on 05/11/22 1006 Last Action: Discontinued Pregabalin (Lyrica) 50 Mg Capsule, 50 MG PO TID, (Reported) Discontinued Reason: No Longer Taking Entered as Reported by: OLINDA GARNICA on 05/11/22 1006 Last Action: Discontinued Quetiapine Fumarate (Seroquel) 300 Mg Tablet, 300 MG PO HS, (Reported) Discontinued Reason: No Longer Taking Entered as Reported by: OLINDA GARNICA on 05/11/22 1010 Last Action: Discontinued Past Eribyqv-Pawaas-Osvuvn Hx Patient Social History Smoking Status: Current Everyday Smoker Type Used: Cigarettes 2nd Hand Smoke Exposure: Yes Recent Hopitalizations: No Alcohol Use?: No Have you traveled recently?: No Immunizations Up To Date Tetanus Booster (TDap): Unknown Date of Influenza Vaccine: Mar 18, 2022 Seasonal Allergies Seasonal Allergies: No Surgeries History of Surgeries: Yes (D&C, EXCISION RIGHT BREAST SPIDER BITE) Surgeries: Section, Gallbladder (05/13/2022) Respiratory History of Respiratory Disorde: No Cardiovascular History of Cardiac Disorders: No Neurological History of Neurological Disord: No Genitourinary History of Genitourinary Disor: No Gastrointestinal History of Gastrointestinal Di: Yes Gastrointestinal Disorders: Gastroesophageal Reflux, Irritable Bowel Musculoskeletal History of Musculoskeletal Dis: Yes Musculoskeletal Disorders: Chronic Back Pain Endocrine History of Endocrine Disorders: No HEENT History of HEENT Disorders: No Cancer History of Cancer: No Psychosocial History of Psychiatric Problem: Yes (MANIC DEP W/PHYSCHOTIC FEATURE, PARONOID PERSONALITY DISORDER) Behavioral Health Disorders: Bipolar, Depression Integumentary History of Skin or Integumenta: No Blood Transfusions History of Blood Disorders: No Review of Systems-General Constitutional: No chills, No diaphoresis, No fever EENTM: No blurred vision, No nose congestion, No throat pain Respiratory: No cough, No short of breath Cardiovascular: No chest pain, No palpitations Gastrointestinal: abdominal pain (RUQ LUQ); No constipation, No diarrhea, No dysphagia; loss of appetite; No nausea, No vomiting Genitourinary: No decreased output, No dysuria, No frequency Musculoskeletal: back pain (post RT shoulder ), muscle pain (rt scapula and arm); No neck pain Skin: No change in color, No change in hair/nails Psychiatric/Neurological: Denies Headache, Denies Weakness Physical Exam-General Problems Physical Exam Vital Signs Vital Signs - First Documented 05/18/22 15:12 Temp 37.2 Pulse 82 Resp 20 B/P (MAP) 186/89 (121) Pulse Ox 98 O2 Delivery Room Air Capillary Refill : Less Than 3 Seconds General Appearance: WD/WN, no apparent distress Eyes: Bilateral Eye Normal Inspection, Bilateral Eye PERRL, Bilateral Eye EOMI HEENT: PERRL/EOMI, normal ENT inspection, other (moist mucus membranes ) Neck: supple, normal inspection Respiratory: chest non-tender, lungs clear, normal breath sounds, no respiratory distress, no accessory muscle use Cardiovascular: regular rate, rhythm, no edema, no murmur Peripheral Pulses: 3+ Dorsalis Pedis (R), 3+ Left Dors-Pedis (L), 3+ Radial Pulses (R), 3+ Radial Pulses (L) Gastrointestinal: no pulsatile mass, abnormal bowel sounds (hypoactive), distended, guarding, tenderness (RUQ LUQ) Back: normal inspection; No decreased range of motion Extremities: normal inspection, no pedal edema, no calf tenderness, normal capillary refill, other (rt arm pain) Neurologic/Psychiatric: alert, normal mood/affect, oriented x 3 Skin: normal color, warm/dry Lymphatic: no adenopathy Data Review Labs Laboratory Tests 05/18/22 15:17: White Blood Count 16.7H, Red Blood Count 4.66, Hemoglobin 14.0, Hematocrit 40, Mean Corpuscular Volume 86, Mean Corpuscular Hemoglobin 30, Mean Corpuscular Hemoglobin Concent 35, Red Cell Distribution Width 14.1, Platelet Count 314, Mean Platelet Volume 10.5, Immature Granulocyte % (Auto) 0, Neutrophils (%) (Auto) 73, Lymphocytes (%) (Auto) 18, Monocytes (%) (Auto) 7, Eosinophils (%) (Auto) 1, Basophils (%) (Auto) 0, Neutrophils # (Auto) 12.2H, Lymphocytes # (Auto) 3.1, Monocytes # (Auto) 1.2H, Eosinophils # (Auto) 0.2, Basophils # (Auto) 0.0, Immature Granulocyte # (Auto) 0.1, Neutrophils % (Manual) 70, Lymphocytes % (Manual) 20, Monocytes % (Manual) 9, Eosinophils % (Manual) 1, Basophils % (Manual) 0, Band Neutrophils 0, Sodium Level 138, Potassium Level 3.5L, Chloride Level 102, Carbon Dioxide Level 24, Anion Gap 12, Blood Urea Nitrogen 13, Creatinine 0.59L, Estimat Glomerular Filtration Rate 115, BUN/Creatinine Ratio 22, Glucose Level 101, Calcium Level 9.5, Corrected Calcium 9.3, Total Bilirubin 0.4, Aspartate Amino Transf (AST/SGOT) 15, Alanine Aminotransferase (ALT/SGPT) 19, Alkaline Phosphatase 73, Total Protein 7.5, Albumin 4.2, Lipase 15 05/18/22 16:13: Urine Color YELLOW, Urine Clarity CLEAR, Urine pH 7.0, Urine Specific [place] 1 .010L, Urine Protein NEGATIVE, Urine Glucose (UA) NEGATIVE, Urine Ketones NEGATIVE, Urine Nitrite NEGATIVE, Urine Bilirubin NEGATIVE, Urine Urobilinogen 0.2, Urine Leukocyte Esterase TRACEH, Urine RBC (Auto) 1+H, Urine RBC RARE, Urine WBC 10-25H, Urine Squamous Epithelial Cells 2-5, Urine Crystals NONE, Urine Bacteria TRACE, Urine Casts NONE, Urine Mucus NEGATIVE, Urine Culture Indicated YES 05/18/22 16:55: Lactic Acid Level 1.00 05/19/22 05:30: White Blood Count 17.5H, Red Blood Count 4.50, Hemoglobin 13.4, Hematocrit 39, Mean Corpuscular Volume 88, Mean Corpuscular Hemoglobin 30, Mean Corpuscular Hemoglobin Concent 34, Red Cell Distribution Width 14.0, Platelet Count 294, Mean Platelet Volume 10.6, Sodium Level 135, Potassium Level 3.9, Chloride Level 106, Carbon Dioxide Level 21, Anion Gap 8, Blood Urea Nitrogen 11, Creatinine 0.64, Estimat Glomerular Filtration Rate 113, BUN/Creatinine Ratio 17, Glucose Level 113H, Calcium Level 9.1, Corrected Calcium 9.2, Total Bilirubin 0.8, Aspartate Amino Transf (AST/SGOT) 16, Alanine Aminotransferase (ALT/SGPT) 24, Alkaline Phosphatase 63, Total Protein 7.0, Albumin 3.9 Assessment/Plan Assessment/Plan Assessment/Plan Abdominal pain -CT 05/18/21 : Fluid-containing structure in the gallbladder fossa may represent bile leak or developing biloma with mild adjacent edema and/or inflammation within the hepatic flexure of colon. GERD IBS Leukocytosis Contine IV Abx therapy continue pain control continue NPO continue IV LR blood cultures pending continue to monitor electrolytes HIDA scan today -Impression:There is no evidence of biliary tract obstruction although activity does simulate in the gallbladder fossa. Postcholecystectomy this is likely related to bile leak and developing biloma without significant free dispersion during one hour of imaging. Pt to transfer today to GI for ERCP and possible IR drain placement. BRIGIDO LAL DO 05/19/22 6435: History of Present Illness History of Present Illness History of Present Illness 41 year old female who had lap chastity c ioc on 05/13. Was lifting her children yesterday and began having severe sharp pain in the right upper quadrant. 9/10 pain and radiated up to right shoulder. Pain currently under control with pain medication. Prior to onset of pain from lifting she states she was doing quite well. Due to the pain she went to ER and had ct and had findings suggestive of possible bile leak. Currently NPO. Allergies and Home Medications Allergies Coded Allergies: sulfamethoxazole (Verified Allergy, Unknown, RASH, 05/11/22) trimethoprim (Verified Allergy, Unknown, RASH, 05/11/22) Patient Home Medication List Home Medication List Reviewed: Yes Acetaminophen (Tylenol Extra Strength) 500 Mg Tablet, 1,000 MG PO Q8H PRN for PAIN-MILD (1-4), (Reported) Entered as Reported by: VELVET OVALLES on 05/19/221136 Last Action: Held Buspirone HCl (Buspirone HCl) 15 Mg Tablet, 15 MG PO BID, (Reported) Entered as Reported by: OLINDA GARNICA on 05/11/22 1006 Last Action: Continued Cholecalciferol (Vitamin D3) (Vitamin D3) 25 Mcg (1000 Unit) Capsule, 25 MCG PO DAILY, (Reported) Entered as Reported by: VELVET OVALLES on 05/19/221136 Last Action: Converted Cyanocobalamin (Vitamin B-12) (Vitamin B-12) 1,000 Mcg Tablet, 1,000 MCG PO DAILY, (Reported) Entered as Reported by: VELVET OVALLES on 05/19/221136 Last Action: Continued Desvenlafaxine Succinate (Desvenlafaxine Succinate ER) 50 Mg Tab.er.24h, 50 MG PO DAILY, (Reported) Entered as Reported by: VELVET OVALLES on 05/19/221136 Last Action: Converted Dicyclomine HCl (Dicyclomine HCl) 10 Mg Capsule, 10 MG PO TID, (Reported) Entered as Reported by: OLINDA GARNICA on 05/11/221005 Last Action: Continued Hydrocodone/Acetaminophen (Hydrocodone-Acetamin 5-325 mg) 5 Mg-325 Mg Tablet, 1 TAB PO Q4H PRN for PAIN-MODERATE (5-7), (Reported) Entered as Reported by: VELVET OVALLES on 05/19/221136 Last Action: Held Meloxicam (Meloxicam) 15 Mg Tablet, 15 MG PO DAILY, (Reported) Entered as Reported by: OLINDA GARNICA on 05/11/221005 Last Action: Held Pregabalin (Pregabalin) 50 Mg Capsule, 50 MG PO TID, (Reported) Entered as Reported by: VELVET OVALLES on 05/19/221136 Last Action: Continued Quetiapine Fumarate (Quetiapine Fumarate) 300 Mg Tablet, 300 MG PO HS, (Reported) Entered as Reported by: VELVET OVALLES on 05/19/221136 Last Action: Converted Discontinued Medications Albuterol Sulfate (Ventolin Hfa) 1 Puff Puff, 2 PUFF INH Q4H, (Reported) Discontinued Reason: No Longer Taking Entered as Reported by: OLINDA GARNICA on 05/11/221005 Last Action: Discontinued Buspirone HCl (Buspirone HCl) 15 Mg Tablet, 15 MG PO BID, (Reported) Discontinued Reason: Duplicate Order Entered as Reported by: OLINDA GARNICA on 05/11/221005 Last Action: Discontinued Desvenlafaxine Succinate (Pristiq ER) 50 Mg Tab.er.24h, 50 MG PO DAILY, (Reported) Discontinued Reason: No Longer Taking Entered as Reported by: OLINDA GARNICA on 05/11/221005 Last Action: Discontinued Hydrocodone/Acetaminophen (Hydrocodone-Acetamin 5-325 mg) 5 Mg-325 Mg Tablet, 1 EACH PO Q4H PRN for PAIN-MODERATE (5-7) Discontinued Reason: No Longer Taking Prescribed by: BRIGIDO LAL on 05/13/22 1209 Last Action: Discontinued Mv-Mn/Iron/FA/Herbal Cmplx#190 (Vitamin D3 Complete Caplet) 18 Mg Iron-800 Mcg- 150 Mg Tablet, 1 EACH PO UD, (Reported) Discontinued Reason: No Longer Taking Entered as Reported by: OLINDA GARNICA on 05/11/22 1006 Last Action: Discontinued Pregabalin (Lyrica) 50 Mg Capsule, 50 MG PO TID, (Reported) Discontinued Reason: No Longer Taking Entered as Reported by: OLINDA AGRNICA on 05/11/22 1006 Last Action: Discontinued Quetiapine Fumarate (Seroquel) 300 Mg Tablet, 300 MG PO HS, (Reported) Discontinued Reason: No Longer Taking Entered as Reported by: OLINDA GARNICA on 05/11/22 1010 Last Action: Discontinued Past Ihpqgjc-Xyvkkr-Ioymgd Hx Reviewed Nursing Assessment Reviewed/Agree w Nursing PMH: Yes Family Medical History Significant Family History: No Pertinent Family Hx Review of Systems-General Constitutional: No chills, No diaphoresis EENTM: No blurred vision, No double vision Respiratory: No cough, No short of breath Cardiovascular: No chest pain, No palpitations Gastrointestinal: abdominal pain (RUQ), loss of appetite; No nausea, No vomiting Genitourinary: No decreased output, No frequency Musculoskeletal: back pain (post RT shoulder ), muscle pain (rt scapula and arm); No neck pain Skin: No change in color, No change in hair/nails Psychiatric/Neurological: Denies Weakness All Other Systems Reviewed Negative Unless Noted: Yes (Negative excepted noted.) Physical Exam-General Problems Physical Exam General Appearance: WD/WN, no apparent distress HEENT: PERRL/EOMI, normal ENT inspection, other (moist mucus membranes ) Neck: supple, normal inspection Respiratory: chest non-tender, no respiratory distress, no accessory muscle use Cardiovascular: regular rate, rhythm, no edema Gastrointestinal: normal bowel sounds, non tender; No guarding; tenderness (RUQ LUQ), other (incisions c/d/i no signs of infection) Rectal: deferred Back: normal inspection, decreased range of motion Neurologic/Psychiatric: alert, normal mood/affect, oriented x 3 Skin: normal color, warm/dry Lymphatic: no adenopathy Assessment/Plan Assessment/Plan Assessment/Plan Abdominal pain -CT 05/18/21 : Fluid-containing structure in the gallbladder fossa may represent bile leak or developing biloma with mild adjacent edema and/or inflammation within the hepatic flexure of colon. GERD IBS Leukocytosis IV Abx therapy-Zosyn incentive spirometry continue pain control continue NPO continue IV LR blood cultures pending continue to monitor electrolytes HIDA scan today -Impression:There is no evidence of biliary tract obstruction although activity does simulate in the gallbladder fossa. Postcholecystectomy this is likely related to bile leak and developing biloma without significant free dispersion during one hour of imaging. Pt to transfer today to for ERCP Attempted to transfer to [facility], [place], [facility] with ERCP capabilities, all are at capacity and will not accept. WIll keep npo, Iv fluids, Zosyn, Pain cotnrol. Supervisory-Addendum Brief Verification & Attestation Participated in pt care: history, MDM, physical Personally performed: exam, history, MDM, supervision of care Care discussed with: Medical Student Procedures: n/a Results interpretation: Verified all documentation Verification and Attestation of Medical Student E/M Service A medical student performed and documented this service in my presence. I reviewed and verified all information documented by the medical student and made modifications to such information, when appropriate. I personally performed the physical exam and medical decision making. Brigido Lal, May 19, 2022,19:01 ZHANNA WEINSTEIN May 19, 2022 06:50 BRIGIDO LAL DO May 19, 2022 18:55
[2022-05-19 07:19] VITALS: BP 147/85
--- NOTE | 2022-05-19 08:59 | Diagnostic Imaging Report ---
INDICATION: Recent laparoscopic cholecystectomy with fluid seen within the gallbladder fossa on CT scan one day earlier. After intravenous administration of 5.5 mCi technetium 99m mebrofenin, scintigraphic images reveal normal distribution of activity throughout the liver on the initial images. Within 10 minutes there is activity accumulating in the biliary tree passing through the common bile duct into small bowel. Within 15 minutes, activity does accumulate in the gallbladder fossa and along the inferior margin of the right hepatic lobe. No significant dispersion within the peritoneum is identified. IMPRESSION: There is no evidence of biliary tract obstruction although activity does simulate in the gallbladder fossa. Postcholecystectomy this is likely related to bile leak and developing biloma without significant free dispersion during one hour of imaging. Dictated by: Dictated on workstation # [id number]
[2022-05-19] MEDS: PIPERACILLIN SODIUM/TAZOBACTAM 4.5 GM in NS (IVPB) 100 ML IV SCH ×2 (09:05→15:06)
[2022-05-19 11:22] VITALS: BP 147/88
[2022-05-19] MEDS ORDERED: CYAN-41 PO (11:37)
[2022-05-19] MEDS ORDERED: DESV50TA18 PO (11:37)
[2022-05-19] MEDS ORDERED: QUET300T19 PO (11:37)
[2022-05-19] MEDS ORDERED: CHOL10007 PO (11:37)
[2022-05-19] MEDS ORDERED: ACET-2267 PO (11:37)
[2022-05-19] MEDS ORDERED: PREG50CA65 PO (11:37)
[2022-05-19] MEDS ORDERED: ACHD5005 PO (11:37)
[2022-05-19] MEDS ORDERED: NICOTINE 21 MG (NICODERM) PATCH TD NR (15:45)
[2022-05-19 16:15] VITALS: BP 153/85
[2022-05-19 19:40] VITALS: BP 152/91
[2022-05-19] MEDS: busPIRone 15 MG (BUSPAR) TABLET PO SCH (20:01)
[2022-05-19] MEDS: DICYCLOMINE 10 MG (BENTYL) CAP PO SCH (20:01)
[2022-05-19] MEDS: PREGABALIN 50 MG (LYRICA) CAP PO SCH (20:01)
[2022-05-19] MEDS: QUEtiapine 100 MG (SEROquel) TAB IMMEDIATE RELEASE PO SCH (20:01)
[2022-05-19] MEDS ORDERED: NON-FORMULARY MEDICATION 1 EA EA (Quetiapine Fumarate 300 MG) PO SCH (21:00)
[2022-05-20] MEDS: PIPERACILLIN SODIUM/TAZOBACTAM 4.5 GM in NS (IVPB) 100 ML IV SCH ×4 (00:12→23:29)
[2022-05-20 00:13] VITALS: BP 131/80
[2022-05-20] MEDS: LACTATED RINGERS 1,000 ML IV SCH ×2 (03:07→11:34)
[2022-05-20 04:06] VITALS: BP 124/76
[2022-05-20] MEDS: VENlafaxine XR 75 MG (EFFEXOR XR) CAP PO SCH (05:10)
--- NOTE | 2022-05-20 07:28 | Progress Note - Surgery ---
ZHANNA WEINSTEIN 05/20/22 0728: Subjective Date Seen by a Provider: May 20, 2022 Time Seen by a Provider: 07:23 Subjective/Events-last exam 41 F day 2 of admission for abdominal pain secondary to suspected bile leak and biloma formation is resting comfortably in bed. Pt reports no increase in abdom inal pain. Denies any n/v, fever, chills, urinary symptoms, CP, SOB. Pt has not had a BM since arrival. Still remains NPO. Attempts to transfer to failed yesterday, plans to attempt again today. Review of Systems General: No Chills, No Night Sweats HEENT: No Head Aches, No Dysphasia Pulmonary: No Dyspnea, No Cough Cardiovascular: No: Chest Pain, Palpitations Gastrointestinal: Abdominal Pain, Constipation; No: Nausea, Vomiting, Diarrhea Genitourinary: No Dysuria, No Frequency Musculoskeletal: shoulder pain, arm pain Neurological: No: Weakness, Numbness Focused Exam Lactate Level 05/18/22 16:55: Lactic Acid Level 1.00 Objective Exam Vital Signs Date Time Temp Pulse Resp B/P (MAP) Pulse Ox O2 Delivery O2 Flow Rate FiO2 05/20/22 04:06 37.3 97 30 124/76 (92) 94 Room Air 05/20/22 00:13 36.9 99 36 131/80 (97) 95 Room Air 05/19/22 20:46 98 Room Air 05/19/22 19:40 37.1 99 36 152/91 (111) 98 Room Air 05/19/22 19:05 Room Air 05/19/22 16:15 36.8 93 18 153/85 (107) 97 Room Air 05/19/22 11:22 36.3 96 17 147/88 (107) Room Air 05/19/22 08:00 95 Room Air I & O 05/20/22 07:00 Intake Total 0 ml Output Total 400 ml Balance -400 ml Capillary Refill : Less Than 3 Seconds General Appearance: No Apparent Distress, WD/WN, Anxious HEENT: PERRL/EOMI, Normal ENT Inspection Neck: Normal Inspection, Non Tender, Supple Respiratory: Chest Non Tender, Lungs Clear, Normal Breath Sounds, No Accessory Muscle Use, No Respiratory Distress Cardiovascular: Regular Rate, Rhythm, No Murmur, Normal Peripheral Pulses Peripheral Pulses: 3+ Dorsalis Pedis (R), 3+ Left Dors-Pedis (L), 3+ Radial Pulses (R), 3+ Radial Pulses (L) Gastrointestinal: normal bowel sounds, no organomegaly, no pulsatile mass; No guarding; tenderness (RUQ LUQ to palpation ), other (incisions c/d/i no signs of infection) Extremity: Normal Capillary Refill, Non Tender, No Calf Tenderness, No Pedal Edema Neurologic/Psychiatric: Alert, Oriented x3, No Motor/Sensory Deficits Skin: Normal Color, Warm/Dry Lymphatic: No Adenopathy Results Lab Microbiology 05/18/22 MRSA Screen - Final, Complete MRSA not isolated 05/18/22 Blood Culture - Preliminary, Resulted No growth 05/18/22 Urine Culture - Preliminary, Resulted Strep agalactiae Group B Assessment/Plan Assessment/Plan Assessment/Plan Abdominal pain -CT 05/18/21 : Fluid-containing structure in the gallbladder fossa may represent bile leak or developing biloma with mild adjacent edema and/or inflammation within the hepatic flexure of colon. GERD IBS Leukocytosis IV Abx therapy-Zosyn continue incentive spirometry continue pain control continue NPO continue IV LR continue home medications for depression/anxiety blood cultures pending continue to monitor electrolytes HIDA scan yesterday -Impression:There is no evidence of biliary tract obstruction although activity does simulate in the gallbladder fossa. Postcholecystectomy this is likely related to bile leak and developing biloma without significant free dispersion during one hour of imaging. Pt to transfer to [facility] today 05/20/2022 to GI for ERCP, pt agreeable to plan. BRIGIDO SOARES DO 05/20/22 1830: Subjective Subjective/Events-last exam Pain better today. NPO. No new complaints. Denies n/v fever sweats chills shortness of breath or chest pain at this time. Respirations were high overnight, this morning not, patient does not believe she as breathing that fast. Objective Exam General Appearance: No Apparent Distress, Anxious HEENT: PERRL/EOMI, Normal ENT Inspection Neck: Normal Inspection, Non Tender Respiratory: Chest Non Tender, No Accessory Muscle Use, No Respiratory Distress Cardiovascular: Regular Rate, Rhythm, No JVD Gastrointestinal: soft, tenderness (RUQ minimal to palpation ), other (incisions c/d/i no signs of infection) Extremity: Non Tender, No Calf Tenderness Neurologic/Psychiatric: Alert, Oriented x3, No Motor/Sensory Deficits Skin: Normal Color, Warm/Dry Lymphatic: No Adenopathy Assessment/Plan Assessment/Plan Assessment/Plan s/p lap chastity biliary leak abdominal pain ruq-improved NPO Zosyn Discussed with Dr. Rizzo plan for ERCP today, will return afterwards. -ERCP no obvious leak, could be duct of Luschka, small papillotomy and stent placed which should resolve this. stent to be removed in 1 month. Supervisory-Addendum Brief Verification & Attestation Participated in pt care: history, MDM, physical Personally performed: exam, history, MDM, supervision of care Care discussed with: Medical Student Procedures: n/a Results interpretation: Verified all documentation Verification and Attestation of Medical Student E/M Service A medical student performed and documented this service in my presence. I reviewed and verified all information documented by the medical student and made modifications to such information, when appropriate. I personally performed the physical exam and medical decision making. Brigido Soares, May 20, 2022,18:38 ZHANNA WEINSTEIN May 20, 2022 07:28 BRIGIDO SOARES DO May 20, 2022 18:30
[2022-05-20 08:00] VITALS: BP 136/76
[2022-05-20] MEDS: HYDROmorphone 2 MG/ML VIAL (DILAUDID) IV PRN (08:10)
[2022-05-20] MEDS: CYANOCOBALAMIN 1,000 MCG (VITAMIN B-12) TABLET PO SCH (08:10)
[2022-05-20] MEDS: busPIRone 15 MG (BUSPAR) TABLET PO SCH ×2 (08:11→21:30)
[2022-05-20] MEDS: DICYCLOMINE 10 MG (BENTYL) CAP PO SCH ×3 (08:11→21:31)
[2022-05-20] MEDS: PREGABALIN 50 MG (LYRICA) CAP PO SCH ×3 (08:11→21:31)
[2022-05-20] MEDS: NICOTINE 21 MG (NICODERM) PATCH TD SCH (08:11)
[2022-05-20] MEDS: VITAMIN D3 25 MCG (1,000 UNITS) TABLET PO SCH (08:11)
[2022-05-20] MEDS ORDERED: NON-FORMULARY MEDICATION 1 EA EA (Desvenlafaxine Succinate (Desvenlafaxine Succinate ER) 5 PO SCH (09:00)
[2022-05-20] MEDS ORDERED: NON-FORMULARY MEDICATION 1 EA EA (Cholecalciferol (Vitamin D3) (Vitamin D3) 25 MCG) PO SCH (09:00)
[2022-05-20] MEDS: NICOTINE PATCH REMOVAL TP SCH (09:12)
[2022-05-20 12:00] VITALS: BP 154/94
[2022-05-20 19:37] VITALS: BP_SYST 104; BP_SYST 149; BP_DIAS 56; BP_DIAS 88
[2022-05-20] MEDS: QUEtiapine 100 MG (SEROquel) TAB IMMEDIATE RELEASE PO SCH (21:30)
[2022-05-20] MEDS ORDERED: ACETAMINOPHEN 325 MG TABLET PO PRN (23:15)
[2022-05-20 23:26] VITALS: BP 120/68
[2022-05-21] MEDS: LACTATED RINGERS 1,000 ML IV SCH ×2 (02:42→04:29)
[2022-05-21 03:34] VITALS: BP 123/85
[2022-05-21] MEDS: VENlafaxine XR 75 MG (EFFEXOR XR) CAP PO SCH (06:44)
[2022-05-21] MEDS: PIPERACILLIN SODIUM/TAZOBACTAM 4.5 GM in NS (IVPB) 100 ML IV SCH (06:45)
[2022-05-21] MEDS: HYDROmorphone 2 MG/ML VIAL (DILAUDID) IV PRN (06:49)
--- NOTE | 2022-05-21 07:29 | Progress Note - Surgery ---
ZHANNA WEINSTEIN 05/21/22 0729: Subjective Date Seen by a Provider: May 21, 2022 Time Seen by a Provider: 07:24 Subjective/Events-last exam 41 F s/p day 1 from ERCP at [facility] by Dr. Kent is resting comfortably in bed. Pt claims she is in minimal amounts of abdominal pain in RUQ at this cal e and reports improvement in overall symptoms since yesterday. Wishes to decrease pain medication from dilaudid. Pt has not had a BM since procedure but is passing flatus. Denies any n/v SOB, fever, CP, or urinary symptoms. Pt was found to no bile leak on ERCP but may have possible duct of Luschka resulting in papillotomy and stent placement. Tolerating diet with no complaints. Review of Systems General: No Chills, No Night Sweats HEENT: No Head Aches, No Dysphasia Pulmonary: No Dyspnea, No Cough Cardiovascular: No: Chest Pain, Palpitations Gastrointestinal: Abdominal Pain (minimal ); No: Nausea, Vomiting Genitourinary: No Dysuria, No Incontinence Musculoskeletal: No: shoulder pain, back pain Neurological: No: Weakness, Numbness Focused Exam Lactate Level 05/18/22 16:55: Lactic Acid Level 1.00 Objective Exam Vital Signs Date Time Temp Pulse Resp B/P (MAP) Pulse Ox O2 Delivery O2 Flow Rate FiO2 05/21/22 03:34 36.4 85 18 123/85 (98) 97 Room Air 05/20/22 23:26 36.3 81 20 120/68 (85) 95 Room Air 05/20/22 20:00 Room Air 05/20/22 19:37 37.1 90 21 149/88 (108) 97 Room Air 05/20/22 16:10 Room Air 05/20/22 12:00 36.3 97 20 154/94 (114) 96 Room Air 05/20/22 08:00 36.8 102 16 136/76 (96) 94 Room Air 05/20/22 08:00 94 Room Air I & O 05/21/22 07:00 Intake Total 4140 ml Output Total 2350 ml Balance 1790 ml Capillary Refill : Less Than 3 Seconds General Appearance: No Apparent Distress, WD/WN HEENT: PERRL/EOMI, Moist Mucous Membranes Neck: Normal Inspection, Non Tender, Supple Respiratory: Chest Non Tender, Lungs Clear, Normal Breath Sounds, No Accessory Muscle Use, No Respiratory Distress Cardiovascular: Regular Rate, Rhythm, No Edema, No JVD, No Murmur, Normal Peripheral Pulses Peripheral Pulses: 3+ Dorsalis Pedis (R), 3+ Left Dors-Pedis (L), 3+ Radial Pulses (R), 3+ Radial Pulses (L) Gastrointestinal: soft, no organomegaly, no pulsatile mass, tenderness (RUQ minimal to palpation ), other (incisions c/d/i no signs of infection) Extremity: Normal Capillary Refill, Normal Inspection, Non Tender, No Calf Tenderness, No Pedal Edema Neurologic/Psychiatric: Alert, Oriented x3, No Motor/Sensory Deficits, Normal Mood/Affect Skin: Normal Color, Warm/Dry Lymphatic: No Adenopathy Results Lab Microbiology 05/18/22 MRSA Screen - Final, Complete MRSA not isolated 05/18/22 Blood Culture - Preliminary, Resulted No growth 05/18/22 Urine Culture - Final, Complete Strep agalactiae Group B See Comments Mixed Bacterial Mandy See Comments#2 Assessment/Plan Assessment/Plan Assessment/Plan s/p lap chastity and s/p ERCP abdominal pain ruq-improved UTI - culture resulted in Group B strep Advance diet continue Zosyn Dr. Rizzo completed ERCP yesterday, pt returned afterwards. decrease pain medications due to decrease in abdominal pain and pts wishes educated pt on post-hospital restrictions to allow for proper healing -ERCP no obvious leak, could be duct of Luschka, small papillotomy and stent placed which should resolve this. stent to be removed in 1 month. discussed findings with pt, pt agrees with plan to f/u in 1mo for removal DC home today BRIGIDO LAL DO 05/21/22 1041: Subjective Subjective/Events-last exam Feeling much better today. Not having any significant pain. S/p ERCP. Tolerating clears. Wanting to go home. Denies n/v fever sweats chills shortness of breath or chest pain. Objective Exam General Appearance: No Apparent Distress, WD/WN HEENT: PERRL/EOMI, Normal ENT Inspection Neck: Normal Inspection, Non Tender Respiratory: Chest Non Tender, No Accessory Muscle Use, No Respiratory Distress Cardiovascular: Regular Rate, Rhythm, No JVD Gastrointestinal: soft, tenderness (RUQ minimal to palpation ), other (incisions c/d/i no signs of infection) Extremity: Non Tender, No Calf Tenderness Neurologic/Psychiatric: Alert, Oriented x3 Skin: Normal Color, Warm/Dry Lymphatic: No Adenopathy Assessment/Plan Assessment/Plan Assessment/Plan s/p lap chastity and s/p ERCP abdominal pain ruq-improved UTI - culture resulted in Group B strep Advance diet Augmentin Dr. Rizzo completed ERCP yesterday, pt returned afterwards. decrease pain medications due to decrease in abdominal pain and pts wishes educated pt on post-hospital restrictions to allow for proper healing ERCP no obvious leak, could be duct of Luschka, small papillotomy and stent placed which should resolve this. stent to be removed in 1 month. discussed findings with pt, pt agrees with plan to f/u in 1mo for removal DC home today Final Diagnosis s/p lap chastity and s/p ERCP c pappilotomy and stent placement abdominal pain ruq-improved UTI Supervisory-Addendum Brief Verification & Attestation Participated in pt care: history, MDM, physical Personally performed: exam, history, MDM, supervision of care Care discussed with: Medical Student Procedures: n/a Results interpretation: Verified all documentation Verification and Attestation of Medical Student E/M Service A medical student performed and documented this service in my presence. I reviewed and verified all information documented by the medical student and made modifications to such information, when appropriate. I personally performed the physical exam and medical decision making. Brigido Lal, May 21, 2022,10:41 ZHANNA WEINSTEIN May 21, 2022 07:29 BRIGIDO LAL DO May 21, 2022 10:41
[2022-05-21 07:33] VITALS: BP 149/78
[2022-05-21] MEDS: NICOTINE PATCH REMOVAL TP SCH (08:34)
[2022-05-21] MEDS: VITAMIN D3 25 MCG (1,000 UNITS) TABLET PO SCH (08:34)
[2022-05-21] MEDS: busPIRone 15 MG (BUSPAR) TABLET PO SCH (08:34)
[2022-05-21] MEDS: DICYCLOMINE 10 MG (BENTYL) CAP PO SCH (08:34)
[2022-05-21] MEDS: PREGABALIN 50 MG (LYRICA) CAP PO SCH (08:35)
[2022-05-21] MEDS: CYANOCOBALAMIN 1,000 MCG (VITAMIN B-12) TABLET PO SCH (08:35)
[2022-05-21] MEDS: NICOTINE 21 MG (NICODERM) PATCH TD SCH (08:35)
[2022-05-21] MEDS ORDERED: AMOX1TAB12 PO (10:46)
--- NOTE | 2022-05-21 10:47 | Discharge Inst-Simple/Standard ---
Discharge Inst-Standard Discharge Medications New, Converted or Re-Newed RX: Transmitted to Pharmacy Patient Instructions/Follow Up Plan of Care/Instructions/FU: 3 weeks Rodger - To set up biliary Stent removal Activity as Tolerated: No Discharge Diet: Regular Diet Other Inst to Patient Follow up Appt: Make appointment for 3 week Rodger for discussing Stent removal and set up. Instructions: No lifting greater than 10 pounds. No strenuous activity. May shower in 24 hours, no tub bath or soaking. Use incentive spirometer at home as directed. No Smoking Skin/Wound Care: You have special glue over your incision that will fall off on it's own. Symptoms to Report: Appetite Changes, Extremity Discoloration, Numbness/Tingling, Swelling Increased, Bleeding Excessive, Eyesight Changes, Pain Increased, Urine Color Change, Constipation(Persistent), Fever over 101 degree F, Pain/Pressure in chest, Urinating Difficulty, Cough Up/Vomit Blood, Heart Beat Irreg/Pounding, Pain/Pressure in jaw, Vaginal Bleeding Increase, Cramps in feet or legs, Lightheadedness, Pain/Pressure in shoulder, Diarrhea(Persistent), Memory Changes Suddenly, Questions/Concerns, Weight gain consecutive days, Dizziness/Fainting, Nausea/Vomiting, Shortness of Breath, Weight gain over 2 pounds If questions or concerns contact your physician Or seek help at emergency department. BRIGIDO LAL DO May 21, 2022 10:47
[2022-05-21 11:23] VITALS: BP 149/78
== END 2022-05-21 11:27 | disposition home or self-care (01) | DRG 394 ==
LOC: EDUNIT# 15:09 → ER FS 15:13 → 4TH 19:35
PROVIDERS: ADMIT Surgery; ATTEND Surgery
DX: K91.89 Other postprocedural complications and disorders of digestive system (principal); N39.0 Urinary tract infection, site not specified; B96.89 Other specified bacterial agents as the cause of diseases classified elsewhere; F31.9 Bipolar disorder, unspecified; F41.9 Anxiety disorder, unspecified; K21.9 Gastro-esophageal reflux disease without esophagitis; K58.9 Irritable bowel syndrome, unspecified; Z88.2 Allergy status to sulfonamides; Z88.8 Allergy status to other drugs, medicaments and biological substances
CPT/HCPCS: 36415; 74177; 78226; 80053; 81000; 83605; 83690; 85007; 85027; 87040; 87081; 87088; 94664; Q9967

== ENCOUNTER 2022-06-23 05:51 | Outpatient (CLI) | payer MEDICAID ==
[~2022-06-23] VITALS: Ht 162.6 cm; Wt 75.8 kg
[~2022-06-23 05:51] MED LIST changes: +ACET-2267 PO; +AMOX1TAB12 PO; +CHOL10007 PO; +CYAN-41 PO; +DESV50TA18 PO; +PREG50CA65 PO; +QUET300T19 PO
[2022-06-23] MEDS ORDERED: PNV-9 PO (08:52)
[2022-06-23] MEDS ORDERED: MELO15TA39 PO (08:52)
[2022-06-23] MEDS ORDERED: QUET200T PO (08:52)
[2022-06-23] MEDS ORDERED: VARE1TAB28 PO (08:52)
[2022-06-23] MEDS ORDERED: NICO-533 TD (08:52)
[2022-06-23] MEDS ORDERED: RT-ALBUINH INH (08:52)
[2022-06-23] MEDS ORDERED: DESV50TA PO (08:52)
== END 2022-06-23 08:56 | disposition home or self-care (01) ==
LOC: PREOP 05:51
PROVIDERS: ATTEND Surgery
DX: Z01.818 Encounter for other preprocedural examination (principal)

== ENCOUNTER 2022-07-05 07:26 | Day surgery (SDC) | payer MEDICAID ==
[~2022-07-05] VITALS: Ht 162.6 cm; Wt 75.8 kg
[~2022-07-05 07:26] MED LIST changes: +NICO-533 TD; +PNV-9 PO; +QUET200T PO; +VARE1TAB28 PO
--- NOTE | 2022-07-05 07:36 | Progress Note-Pre Operative ---
Pre-Operative Progress Note Date H&P Reviewed: Jul 05, 2022 Time H&P Reviewed: 07:36 History & Physical: H&P Reviewed, Patient Examed, No changes noted Pre-Operative Diagnosis: hx biliary stent BRIGIDO LAL DO Jul 05, 2022 07:36
[2022-07-05] MEDS ORDERED: LACTATED RINGERS 1,000 ML IV ONE (07:44)
[2022-07-05 07:50] VITALS: BP 120/97
[2022-07-05] MEDS ORDERED: LACTATED RINGERS 1,000 ML IV STA (07:52)
[2022-07-05] MEDS ORDERED: HURRICAINE EXT TUBE (BENZOCAINE) XX PRN (08:00)
[2022-07-05] MEDS ORDERED: SIMETHICONE 40 MG/0.6 ML (MYLICON DROPS) 30 ML BTL ONE (08:27)
[2022-07-05 08:35] VITALS: BP 147/86
--- NOTE | 2022-07-05 08:35 | Anesthesia-General Post-Op ---
MAC Patient Condition Mental Status/LOC: Same as Preop Cardiovascular: Satisfactory Nausea/Vomiting: Absent Respiratory: Satisfactory Pain: Controlled Complications: Absent Post Op Complications Complications None Follow Up Care/Instructions Patient Instructions None needed. Anesthesiology Discharge Order Discharge Order Patient is doing well, no complaints, stable vital signs, no apparent adverse anesthesia problems. No complications reported per nursing. BEATRIZ CALIX CRNA Jul 05, 2022 08:35
[2022-07-05 08:40] VITALS: BP 143/80
[2022-07-05 08:45] VITALS: BP 138/102
[2022-07-05] MEDS ORDERED: HURRICAINE EXT TUBE (BENZOCAINE) ONE (08:45)
--- NOTE | 2022-07-05 09:17 | Diagnostic Imaging Report ---
ABDOMEN/KUB 1VIEW INDICATION: Biliary stent placement. COMPARISON: CT abdomen and pelvis from 05/18/2022. TECHNIQUE: AP view of the abdomen. FINDINGS: Cholecystectomy clips are noted. No metallic or hyperdense common bile duct stent within the right upper quadrant or elsewhere within the bowel. Nonobstructive bowel gas pattern. Normal regional skeleton. IMPRESSION: No metallic or hyperdense common bile duct stent within the right upper quadrant or elsewhere within the bowel. Dictated by: Dictated on workstation # [id number]
--- NOTE | 2022-07-05 09:19 | Discharge Inst-Simple/Standard ---
Discharge Inst-Standard Discharge Medications New, Converted or Re-Newed RX: Transmitted to Pharmacy Patient Instructions/Follow Up Plan of Care/Instructions/FU: Rodger for screening colonoscopy at 44 years old Activity as Tolerated: Yes Discharge Diet: No Restrictions, Regular Diet BRIGIDO LAL DO Jul 05, 2022 09:19
[2022-07-05 09:30] VITALS: BP 138/102
--- NOTE | 2022-07-05 09:33 | Progress Note-Post Operative ---
Post-Operative Progess Note Surgeon (s)/Production Assistant (s) Surgeon BRIGIDO LAL DO Production Assistant: na Pre-Operative Diagnosis hx biliary stent Post-Operative Diagnosis normal egd Procedure & Operative Findings Date of Procedure 07/05/22 Procedure Performed/Findings egd Anesthesia Type per bench technician Estimated Blood Loss Estimated blood loss (mL): none Specimens/Packing Specimens Removed na BRIGIDO LAL DO Jul 05, 2022 09:33
--- NOTE | 2022-07-05 14:37 | OPERATIVE REPORT ---
DATE OF SERVICE: 07/05/2022 PREOPERATIVE DIAGNOSIS: History of biliary stent. POSTOPERATIVE DIAGNOSIS: Normal EGD. PROCEDURE: Esophagogastroduodenoscopy. SURGEON: Brigido Soares DO ANESTHESIA: Per REPAIRER SASH AND DOOR. ESTIMATED BLOOD LOSS: None. COMPLICATIONS: None. INDICATIONS: The patient is a 41-year-old female who had a biliary stent placed. She has not had it removed. She was discussed risks and benefits of having it removed. She wishes to proceed. Consent was signed in chart. DESCRIPTION OF PROCEDURE: The patient was taken to endoscopy suite, placed in left lateral recumbent position. Timeout was performed. Scope was inserted in the mouth, down the esophagus, stomach, into the duodenum without difficulty. No polyps, masses or ulcerations in the duodenum. No evidence of biliary stent. Scope was inserted and retracted multiple times without visualization of the stent. The ampulla of Vater was visualized, and no stent present. Scope was then slowly retracted back in the stomach where it where it was further insufflated. No polyps, masses or ulcerations. Scope was retroflexed noting no other pathology. Scope was returned to its normal position, slowly withdrawn until distal esophagus, had normal appearance. Scope was slowly retracted back until completely removed, noting no other pathology. The patient tolerated the procedure well, no complications, taken to recovery in stable condition. RECOMMENDATIONS: The patient recommended colonoscopy at the age 44 for screening purposes. Any issues before that, be seen at that time. Due to the [ ] not being visualized, we will get an abdominal x-ray. Even though, it was not visualized, no other indications for any further procedure. Job ID: [id number] DocumentID: [id number] Dictated Date: 07/05/2022 09:40:34 Machinist General Date: 07/05/2022 14:34:00 Dictated By: BRIGIDO SOARES DO
== END 2022-07-05 09:35 | disposition home or self-care (01) ==
LOC: ENDO 07:26
PROVIDERS: ATTEND Surgery
DX: Z08 Encounter for follow-up examination after completed treatment for malignant neoplasm (principal); K83.3 Fistula of bile duct; F17.210 Nicotine dependence, cigarettes, uncomplicated
CPT/HCPCS: 74018; 84703

== ENCOUNTER 2022-08-15 04:40 | Emergency (ER) | payer MEDICAID ==
[~2022-08-15] VITALS: Ht 162.5 cm; Wt 78.2 kg
[2022-08-15] MEDS ORDERED: ONDANSETRON 4 MG (ZOFRAN) ORAL DISSOLVE TAB PO STA (05:02)
--- NOTE | 2022-08-15 05:09 | ED Cough/URI ---
General Chief Complaint: Cough/Cold/Flu Symptoms Stated Complaint: COMGESTIOON/SOB Source: patient History of Present Illness Date Seen by Provider: Aug 15, 2022 Time Seen by Provider: 04:51 Initial Comments 41-year-old female presenting with complaints of cough, shortness of breath, sore throat, nausea and vomiting that started yesterday. She has had ill children at home as well as been exposed to strep throat recently. She felt like she had a temperature up to 100-1 01 Fahrenheit yesterday but did not take it with a thermometer. She does smoke cigarettes and has cough from that but feels like she has been coughing more than usual. She is occasionally bringing up some thick phlegm. She has had influenza vaccine this season and has had COVID vaccination. Timing/Duration: yesterday Severity/Quality: productive cough Prior Episodes/Possible Cause: occasional episodes Modifying Factors: Worse With Coughing Associated Symptoms: cough, fever/chills, headache, nasal congestion, shortness of breath, sore throat, wheezing Allergies and Home Medications Allergies Coded Allergies: sulfamethoxazole (Verified Allergy, Unknown, RASH, 05/11/22) trimethoprim (Verified Allergy, Unknown, RASH, 05/11/22) Patient Home Medication List Home Medication List Reviewed: Yes Albuterol Sulfate (Ventolin Hfa) 1 Puff Puff, 2 PUFF INH Q4H, (Reported) Entered as Reported by: MARYLIN HUTCHISON on 06/23/22 0852 Last Action: Last Taken Edited Buspirone HCl (Buspirone HCl) 15 Mg Tablet, 15 MG PO BID, (Reported) Entered as Reported by: OLINDA GARNICA on 05/11/22 1006 Last Action: Last Taken Edited Cholecalciferol (Vitamin D3) (Vitamin D3) 25 Mcg (1000 Unit) Capsule, 25 MCG PO DAILY, (Reported) Entered as Reported by: VELVET OVALLES on 05/19/22 1137 Last Action: Last Taken Edited Cyanocobalamin (Vitamin B-12) (Vitamin B-12) 1,000 Mcg Tablet, 1,000 MCG PO DAILY, (Reported) Entered as Reported by: VELVET OVALLES on 05/19/22 1137 Last Action: Last Taken Edited Desvenlafaxine Succinate (Pristiq ER) 50 Mg Tab.er.24h, 50 MG PO DAILY, ( Reported) Entered as Reported by: MARYLIN UHTCHISON on 06/23/22851 Last Action: Last Taken Edited Dextromethorphan HBr/Bupropion (Auvelity ER 45-105 mg Tablet) 45 Mg-105 Mg Tab.ir.er, 1 TAB PO BID, (Reported) Entered as Reported by: SAM SHARMA on 08/15/22530 Last Action: New Order Meloxicam (Meloxicam) 15 Mg Tablet, 15 MG PO DAILY, (Reported) Entered as Reported by: MARYLIN HUTCHISON on 06/23/22851 Last Action: Last Taken Edited Nicotine (Nicotine Patch) 21-14-7MG Patch.dysq, 14 MG TD DAILY, (Reported) Entered as Reported by: MARYLIN HUTCHISON on 06/23/22851 Last Action: Last Taken Edited Ondansetron (Ondansetron Odt) 4 Mg Tab.rapdis, 4 MG PO Q6H PRN for NAUSEA/VOMITING Prescribed by: RIA JOSHUA on 08/15/22600 Prednisone (Prednisone) 20 Mg Tab, 40 MG PO DAILY Prescribed by: RIA JOSHUA on 08/15/22600 Pregabalin (Pregabalin) 50 Mg Capsule, 50 MG PO TID, (Reported) Entered as Reported by: VELVET OVALLES on 05/19/221136 Last Action: Last Taken Edited Quetiapine Fumarate (Seroquel) 200 Mg Tablet, 200 MG PO DAILY, (Reported) Entered as Reported by: MARYLIN HUTCHISON on 06/23/22851 Last Action: Last Taken Edited Risperidone (Risperidone) 0.5 Mg Tablet, (Reported) Entered as Reported by: SAM SHARMA on 08/15/22530 Last Action: New Order Varenicline Tartrate (Varenicline) 0.5 Mg (11)-1 Mg (42) Tab.ds.pk, 1 EACH PO UD, (Reported) Entered as Reported by: MARYLIN HUTCHISON on 06/23/22851 Last Action: Last Taken Edited Discontinued Medications Dicyclomine HCl (Dicyclomine HCl) 10 Mg Capsule, 10 MG PO TID, (Reported) Discontinued Reason: Referral/FU Appt-Addtl Entered as Reported by: OLINDA GARNICA on 05/11/22 1006 Last Action: Discontinued Pnv 119/Iron Fum/Folic Acid ( 19 Tablet) 29 Mg Iron-1 Mg Tablet, 1 EACH PO DAILY, (Reported) Discontinued Reason: Referral/FU Appt-Addtl Entered as Reported by: MARYLIN HUTCHISON on 06/23/22 8257 Last Action: Discontinued Review of Systems Review of Systems Constitutional: see HPI EENTM: see HPI, nose congestion, throat pain Respiratory: see HPI Cardiovascular: no symptoms reported Gastrointestinal: see HPI, nausea, vomiting Genitourinary: no symptoms reported Musculoskeletal: muscle pain (Generalized body ache) Skin: No rash Psychiatric/Neurological: Anxiety Past Vpfmnpc-Dgsbqg-Gulsxd Hx Patient Social History Tobacco Use?: Yes Tobacco type used: Cigarettes Smoking Status: Current Everyday Smoker Immunizations Up To Date Tetanus Booster (TDap): Unknown First/Initial COVID19 Vaccinat: 2020 Second COVID19 Vaccination Mikie: NO Third COVID19 Vaccination Date: NO Seasonal Allergies Seasonal Allergies: No Past Medical History Surgery/Hospitalization HX: D&C;Depression; Bipolar; Chronic back pain; IBS; Cesearean; Surgeries: Yes (D&C, EXCISION RIGHT BREAST SPIDER BITE) Section, Gallbladder Respiratory: Yes COPD Cardiac: No Neurological: No Genitourinary: No Gastrointestinal: Yes Gastroesophageal Reflux, Irritable Bowel Musculoskeletal: Yes Chronic Back Pain Endocrine: No HEENT: No Cancer: No Psychosocial: Yes (MANIC DEP W/PHYSCHOTIC FEATURE, PARONOID PERSONALITY DISORDER) Anxiety, Bipolar, Depression Integumentary: No Blood Disorders: No Family Medical History No Pertinent Family Hx Physical Exam Vital Signs - First Documented 08/15/22 04:51 Temp 36.5 Pulse 78 Resp 18 B/P (MAP) 148/90 (109) Pulse Ox 98 O2 Delivery Room Air Capillary Refill : Height: 5'4.00" Weight: 168lbs. oz. 76.361821hs; 28.67 BMI Method:Stated General Appearance: WD/WN, no apparent distress HEENT: PERRL/EOMI, pharynx normal Neck: non-tender, full range of motion, supple, normal inspection Respiratory: chest non-tender, lungs clear, normal breath sounds, no respiratory distress, no accessory muscle use Cardiovascular: normal peripheral pulses, regular rate, rhythm Gastrointestinal: normal bowel sounds, non tender, soft, no pulsatile mass Extremities: normal range of motion, non-tender, normal capillary refill Neurologic/Psychiatric: pharmaceutical operator II-XII nml as tested, alert, oriented x 3 Skin: normal color, warm/dry Progress/Results/Core Measures Suspected Sepsis SIRS Temperature: Pulse: Respiratory Rate: Blood Pressure / Mean: Results/Orders Lab Results Laboratory Tests Test 08/15/22 05:15 Range/Units Influenza Type A (RT-PCR) Not Detected Not Detecte Influenza Type B (RT-PCR) Not Detected Not Detecte SARS-CoV-2 RNA (RT-PCR) Detected H Not Detecte Group A Streptococcus Screen NEGATIVE NEGATIVE My Orders Orders - RIA JOSHUA MD Ondansetron Oral Dissolve Tab (Zofran (08/15/22 05:02) Covid 19 Inhouse Test (08/15/22 05:02) Rapid Strep A Screen (08/15/22 05:02) Chest Pa/Lat (2 View) (08/15/22 05:02) Influenza A And B By Pcr (08/15/22 05:02) Isolation Central Supply Req (08/15/22 05:02) Throat Culture Strep A Confirm (08/15/22 05:15) Prednisone Tablet (Deltasone Tablet) (08/15/22 06:01) Vital Signs/I&O 08/15/22 08/15/22 08/15/22 04:51 04:51 06:11 Temp 36.5 Pulse 78 72 Resp 18 18 B/P (MAP) 148/90 (109) 135/70 Pulse Ox 98 98 O2 Delivery Room Air Room Air Room Air Capillary Refill : Progress Note #1: Progress Note Potential diagnosis of viral syndrome, strep throat, COVID, influenza, pneumonia. Administer Zofran ODT 4 mg x 1 for her nausea. Her vital signs were not suggestive of dehydration or sepsis as she has a blood pressure 148/90, oxygen saturation of 98 to 100% on room air, afebrile. Obtain nasal swab to check for COVID and influenza, throat swab to check for strep, 2 view chest x-ray to evaluate her lungs for possible infection. Progress Note #2: Time: 05:32 Progress Note On my personal interpretation and review of the two-view chest x-ray she has no acute infiltrate or effusion. She does have some increased perihilar bronchial markings that could indicate a viral infection. Her rapid strep test is negative. Progress Note #3: Time: 05:56 Progress Note Influenza was negative but COVID was positive on the nasal swab. The radiologist also read her chest x-ray is no acute process. Counseled patient on findings and results. Advised to push fluids and rest. Continue with Zofran to help keep stomach settled with 4 mg ODT every 6 hours as needed for nausea and vomiting. Will have her use her albuterol inhaler that she already has for COPD to help with cough and shortness of breath. Prescribed prednisone burst to help with COPD and cough with congestion from a COVID or viral standpoint. Encourage fluids and rest and using Mucinex to help thin secretions and mucus. Use o ovj-hvy-pmehiif acetaminophen and/or ibuprofen to help with body aches and pains. Wear a mask for the next 10 days around others and quarantine for the next 5 days. Diagnostic Imaging Diagonstic Imaging: Xray Plain Films/CT/US/NM/MRI: chest Comments NAME: JACOBY CARRASQUILLO [facility] REC#: [id number] PT STATUS: REG ER : 1980 PHYSICIAN: RIA JOSHUA MD ADMIT DATE: 08/15/22/ER FS Draft Date of Exam:08/15/22 CHEST PA/LAT (2 VIEW) INDICATION: cough, fever, short of breath, COVID PUI. TECHNIQUE: Two view chest 5:10 AM CORRELATION STUDY: None FINDINGS: The heart size, mediastinal configuration and pulmonary vasculature are within normal limits. The lungs are clear with no consolidating infiltrate. There is no significant pleural effusion or pneumothorax. Visualized osseous structures are unremarkable. IMPRESSION: 1. Negative for acute abnormality of the chest. Dictated on workstation # [id number] Dict: 08/15/22 0542 Trans: 08/15/22 0543 DO [id number] Interpreted by: LUIS ALBERTO MOORE DO Electronically signed by: Reviewed: Reviewed by Me (I reviewed the radiologist report at 0556 and the agreed that there is no acute process on the films.) Departure Impression Primary Impression: COVID-19 virus infection Additional Impressions: Acute viral syndrome Shortness of breath Cough Qualified Codes: R05.1 - Acute cough Disposition: 01 HOME, SELF-CARE Condition: Stable Departure-Patient Inst. Decision time for Depature: 05:58 Referrals: SELFDEISI MD (PCP/Family) Primary Care Physician Patient Instructions: Cough, Adult ED, Quitting Smoking ED, Shortness of Breath, Adult ED, Viral Syndrome (DC), COVID-19 ED, COVID-19 After You Have Been Vaccinated Add. Discharge Instructions: He should wear a mask for the next 10 days and for the next 5 days while wearing a mask he should also try to quarantine and isolate is much as possible to try and help prevent further spread of the COVID infection. Take the prednisone to help with cough and shortness of breath. Use your albuterol inhaler to help with coughing and shortness of breath. Try to keep sipping on fluids and stay well-hydrated. Use the dissolving nausea tablets to help keep your stomach settled so you can drink and eat better. Use acetaminophen and/or ibuprofen to help with body aches and fever. May use plain Mucinex turs-emc-whrednh to try and help with cough and congestion. Try to quit smoking to help improve your breathing. If you feel your symptoms are worsening instead of improving then you could get rechecked to ensure your oxygen saturation is staying up above 90%. All discharge instructions reviewed with patient and/or family. Voiced understanding. Scripts Ondansetron (Ondansetron Odt) 4 Mg Tab.rapdis 4 MG PO Q6H PRN for NAUSEA/VOMITING for 5 Days, #20 TAB 0 Refills Prov: RIA JOSHUA MD 08/15/22 Prednisone (Prednisone) 20 Mg Tab 40 MG PO DAILY for COPD/ COVID infection for 5 Days, #10 TAB 0 Refills Prov: RIA JOSHUA MD 08/15/22 RIA JOSHUA MD Aug 15, 2022 05:09
[2022-08-15] MEDS ORDERED: DEXT1TAB50 PO (05:31)
[2022-08-15] MEDS ORDERED: RISP0.5T65 (05:31)
--- NOTE | 2022-08-15 05:43 | Diagnostic Imaging Report ---
INDICATION: cough, fever, short of breath, COVID PUI. TECHNIQUE: Two view chest 5:10 AM CORRELATION STUDY: None FINDINGS: The heart size, mediastinal configuration and pulmonary vasculature are within normal limits. The lungs are clear with no consolidating infiltrate. There is no significant pleural effusion or pneumothorax. Visualized osseous structures are unremarkable. IMPRESSION: 1. Negative for acute abnormality of the chest. Dictated by: Dictated on workstation # [id number]
[2022-08-15] MEDS ORDERED: predniSONE 20 MG TAB PO STA (06:01)
[2022-08-15] MEDS ORDERED: PRD20T PO (06:01)
[2022-08-15] MEDS ORDERED: ONDA4TAB11 PO (06:01)
[2022-08-15 06:11] VITALS: BP 135/70
== END 2022-08-15 06:11 | disposition home or self-care (01) ==
LOC: EDUNIT# 04:40 → ER FS 04:46
DX: U07.1 COVID-19 (principal); J44.9 Chronic obstructive pulmonary disease, unspecified; R06.02 Shortness of breath; R05.9 Cough, unspecified; R11.2 Nausea with vomiting, unspecified; R50.9 Fever, unspecified; R09.81 Nasal congestion; F17.210 Nicotine dependence, cigarettes, uncomplicated; Z79.51 Long term (current) use of inhaled steroids
CPT/HCPCS: 71046; 87430; 87636

== ENCOUNTER 2022-10-31 02:28 | Emergency (ER) | payer MEDICAID ==
[~2022-10-31] VITALS: Ht 162.5 cm; Wt 71.4 kg
[~2022-10-31 02:28] MED LIST changes: +DEXT1TAB50 PO; +ONDA4TAB11 PO; +PRD20T PO; +RISP0.5T65
[2022-10-31 02:30] VITALS: BP 123/85
[2022-10-31] MEDS ORDERED: CYCLOBENZAPRINE 10 MG (FLEXERIL) TAB PO STA (02:42)
[2022-10-31] MEDS ORDERED: KETOROLAC 15 MG/ML VIAL IM ONE (02:45)
[2022-10-31] MEDS ORDERED: IBUP-1773 PO (02:47)
[2022-10-31] MEDS ORDERED: CYCL10TA25 PO (02:47)
--- NOTE | 2022-10-31 02:48 | ED Back Pain ---
General Chief Complaint: Back Problems Stated Complaint: CHRONIC BACK PAIN|BACK SPASMS Nursing Triage Note: Patient states that she has chronic back pain. She has been having spasms in her back for the last 3-4 days and reports that it is making her chronic back pain worse. Patient states she is out of tylenol and ibuprofen. Source of Information: Patient, Old Records Exam Limitations: No Limitations History of Present Illness Date Seen by Provider: Oct 31, 2022 Time Seen by Provider: 02:34 Initial Comments 42-year-old female with past medical history of chronic back pain coming in due to back pain. She states she started having worsening spasms in her lower back a couple days ago. She normally takes ibuprofen, but ran out of it a couple days ago. Flexeril typically does help when it gets this bad, but she also does not have a prescription for this at this time. She states overall she has been dealing with this issue for almost 20 years. She is otherwise denying any other acute complaints including no dysuria, diarrhea, fever, vaginal bleeding, or any other concerns. She is on the Depo shot and does not really have periods. Allergies and Home Medications Allergies Coded Allergies: sulfamethoxazole (Verified Allergy, Unknown, RASH, 05/11/22) trimethoprim (Verified Allergy, Unknown, RASH, 05/11/22) Patient Home Medication List Home Medication List Reviewed: Yes Albuterol Sulfate (Ventolin Hfa) 1 Puff Puff, 2 PUFF INH Q4H, (Reported) Entered as Reported by: MARYLIN HUTCHISON on 06/23/22 0852 Buspirone HCl (Buspirone HCl) 15 Mg Tablet, 15 MG PO BID, (Reported) Entered as Reported by: OLINDA GARNICA on 05/11/22 1006 Cholecalciferol (Vitamin D3) (Vitamin D3) 25 Mcg (1000 Unit) Capsule, 25 MCG PO DAILY, (Reported) Entered as Reported by: VELVET OVALLES on 05/19/22 1137 Cyanocobalamin (Vitamin B-12) (Vitamin B-12) 1,000 Mcg Tablet, 1,000 MCG PO DAILY, (Reported) Entered as Reported by: VELVET OVALLES on 05/19/22 1137 Desvenlafaxine Succinate (Pristiq ER) 50 Mg Tab.er.24h, 50 MG PO DAILY, (Reported) Entered as Reported by: MARYLIN HUTCHISON on 06/23/22851 Dextromethorphan HBr/Bupropion (Auvelity ER 45-105 mg Tablet) 45 Mg-105 Mg Tab.ir.er, 1 TAB PO BID, (Reported) Entered as Reported by: SAM SHARMA on 08/15/22530 Meloxicam (Meloxicam) 15 Mg Tablet, 15 MG PO DAILY, (Reported) Entered as Reported by: MARYLIN HUTCHISON on 06/23/22851 Nicotine (Nicotine Patch) 21-14-7MG Patch.dysq, 14 MG TD DAILY, (Reported) Entered as Reported by: MARYLIN HUTCHISON on 06/23/22851 Ondansetron (Ondansetron Odt) 4 Mg Tab.rapdis, 4 MG PO Q6H PRN for NAUSEA/VOMITING Prescribed by: RIA JOSHUA on 08/15/22600 Prednisone (Prednisone) 20 Mg Tab, 40 MG PO DAILY Prescribed by: RIA JOSHUA on 08/15/22600 Pregabalin (Pregabalin) 50 Mg Capsule, 50 MG PO TID, (Reported) Entered as Reported by: VELVET OVALLES on 05/19/22 1137 Quetiapine Fumarate (Seroquel) 200 Mg Tablet, 200 MG PO DAILY, (Reported) Entered as Reported by: MARYLIN HUTCHISON on 06/23/22851 Risperidone (Risperidone) 0.5 Mg Tablet, (Reported) Entered as Reported by: SAM SHARMA on 08/15/22530 Varenicline Tartrate (Varenicline) 0.5 Mg (11)-1 Mg (42) Tab.ds.pk, 1 EACH PO UD, (Reported) Entered as Reported by: MARYLIN HUTCHISON on 06/23/22851 Review of Systems Constitutional: No fever EENTM: no symptoms reported Respiratory: no symptoms reported Cardiovascular: no symptoms reported Gastrointestinal: no symptoms reported Genitourinary: no symptoms reported Musculoskeletal: see HPI Skin: no symptoms reported Psychiatric/Neurological: No Symptoms Reported Past Oaczfff-Faqpxz-Paliml Hx Patient Social History Tobacco Use?: Yes Tobacco type used: Cigarettes Smoking Status: Current Everyday Smoker Substance use?: No Alcohol Use?: No Pt feels they are or have been: No Immunizations Up To Date Tetanus Booster (TDap): Unknown First/Initial COVID19 Vaccinat: 2020 Second COVID19 Vaccination Mikie: NO Third COVID19 Vaccination Date: NO Seasonal Allergies Seasonal Allergies: No Past Medical History Surgery/Hospitalization HX: D&C; Depression; Bipolar; Chronic back pain; IBS; Cesearean; Lap Yudy; GERD Surgeries: Yes (D&C, EXCISION RIGHT BREAST SPIDER BITE) Section, Gallbladder Respiratory: Yes COPD Cardiac: No Neurological: No Genitourinary: No Gastrointestinal: Yes Gastroesophageal Reflux, Irritable Bowel Musculoskeletal: Yes Chronic Back Pain Endocrine: No HEENT: No Cancer: No Psychosocial: Yes (MANIC DEP W/PHYSCHOTIC FEATURE, PARONOID PERSONALITY DISORDER) Anxiety, Bipolar, Depression Integumentary: No Blood Disorders: No Family Medical History No Pertinent Family Hx Physical Exam Vital Signs Vital Signs - First Documented 10/31/22 02:30 Temp 37.0 Pulse 92 Resp 18 B/P (MAP) 123/85 (98) Pulse Ox 99 O2 Delivery Room Air Capillary Refill : Less Than 3 Seconds Height, Weight, BMI Height: 5'4.00" Weight: 168lbs. oz. [id number]; 27.00 BMI Method:Stated General Appearance: No Apparent Distress, WD/WN HEENT: PERRL/EOMI, Normal ENT Inspection, Pharynx Normal Neck: Full Range of Motion, Normal Inspection, Non Tender, Supple Cardiovascular: Regular Rate, Rhythm, No Edema, Normal Peripheral Pulses Respiratory: Chest Non Tender, Lungs Clear, Normal Breath Sounds, No Accessory Muscle Use, No Respiratory Distress Gastrointestinal: Normal Bowel Sounds, Non Tender, Soft; No Distended, No Guarding Back: Normal Inspection, No CVA Tenderness, No Vertebral Tenderness, Other (Paraspinal tenderness in the lower back around the musculature, negative straight leg test) Extremity: Normal Capillary Refill, Normal Inspection, Normal Range of Motion, Non Tender, No Calf Tenderness, No Pedal Edema Neurologic/Psychiatric: Alert, No Motor/Sensory Deficits, Normal Mood/Affect, Other (Normal gait) Skin: Normal Color, Warm/Dry Progress/Results/Core Measures Results/Orders Vital Signs/I&O 10/31/22 02:30 Temp 37.0 Pulse 92 Resp 18 B/P (MAP) 123/85 (98) Pulse Ox 99 O2 Delivery Room Air Blood Pressure Mean: 98 Progress Progress Note : Progress Note 42-year-old female presenting for acute on chronic low back pain. ABCs were intact and vitals were stable on presentation. Unable to recreate the pain with palpation of the musculature in her lower back. In the absence of trauma and given this has been a chronic issue, lab work and x-ray needed at this time. Does not seem consistent with ureterolithiasis or pyelonephritis. We will give her IM Toradol, and oral Flexeril, followed by prescription for ibuprofen and Flexeril. I believe she is otherwise stable for discharge with outpatient follow-up. She was sent home with strict return precautions. Departure Impression Primary Impression: Spasm of muscle of lower back Disposition: HOME, SELF-CARE Condition: Stable Departure-Patient Inst. Decision time for Depature: 02:55 Referrals: DEISI RUCKER MD (PCP/Family) Primary Care Physician Patient Instructions: Muscle Spasm ED Add. Discharge Instructions: Prescription ibuprofen and Flexeril were sent to the [facility] pharmacy. Can also try things such as a heating pad. Please follow-up with your regular doctor if you are not seeing improvement in the next couple of days. Scripts Cyclobenzaprine HCl (Cyclobenzaprine HCl) 10 Mg Tablet 10 MG PO TID PRN for SPASMS for 5 Days, #15 TAB Prov: BERRY PEREIRA MD 10/31/22 Ibuprofen (Ibuprofen) 600 Mg Tablet 600 MG PO Q6H PRN for PAIN-MILD for 14 Days, #56 TAB Prov: BERRY PEREIRA MD 10/31/22 Work/School Note: Work Release Form Date Seen in the Emergency Department: Oct 31, 2022 Return to Work: Nov 01, 2022 Restrictions: No Restrictions BERRY PEREIRA MD Oct 31, 2022 02:48
== END 2022-10-31 02:52 | disposition home or self-care (01) ==
LOC: EDUNIT# 02:28 → ER FS 02:30
DX: M62.830 Muscle spasm of back (principal); F17.210 Nicotine dependence, cigarettes, uncomplicated; Z28.311 Partially vaccinated for COVID-19
CPT/HCPCS: 99284

== ENCOUNTER 2022-12-01 01:10 | Emergency (ER) | payer MEDICAID ==
[~2022-12-01 01:10] MED LIST changes: +CYCL10TA25 PO; +IBUP-1773 PO
[2022-12-01] MEDS ORDERED: NS IV 1000 ML 1,000 ML IV STA (01:17)
[2022-12-01] MEDS ORDERED: LORazepam 0.5 MG (ATIVAN) TABLET PO STA (01:17)
[2022-12-01] MEDS ORDERED: ORPHENADRINE 60 MG/2 ML (NORFLEX) AMP (ED ONLY) IM STA (01:17)
[2022-12-01] MEDS ORDERED: KETOROLAC 15 MG/ML VIAL IVP STA (01:17)
--- NOTE | 2022-12-01 01:20 | ED General ---
General Stated Complaint: BACK PAIN|ANXIETY| DEHYDRATED Source of Information: Patient History of Present Illness Date Seen by Provider: Dec 01, 2022 Time Seen by Provider: 01:13 Initial Comments 42-year-old female presenting with complaints of acute on chronic low back pain, increased anxiety, sensation of being dehydrated. She states all this is gotten worse in the last few days. She has been going out to the pool every day and feels like she might be dry. She has been trying to drink more fluids but felt like she could not drink enough to overcome her symptoms. She was having some increased anxiety to the point that she was starting to get chest pains with the anxiety. She denies any acute injury or trauma to make the back pain worse. She was having some mild burning with urination today as well as felt like she had had subjective fever. She denies having nausea, vomiting, diarrhea. Timing/Duration: 3-4 Days Severity: Moderate Associated Systoms: No Cough, No Diaphoresis, No Fever/Chills, No Headaches, No Loss of Appetite; Malaise; No Nausea/Vomiting, No Rash, No Seizure, No Shortness of Air, No Syncope, No Weakness Allergies and Home Medications Allergies Coded Allergies: sulfamethoxazole (Verified Allergy, Unknown, RASH, 05/11/22) trimethoprim (Verified Allergy, Unknown, RASH, 05/11/22) Patient Home Medication List Home Medication List Reviewed: Yes Albuterol Sulfate (Ventolin Hfa) 1 Puff Puff, 2 PUFF INH Q4H, (Reported) Entered as Reported by: MARYLIN HUTCHISON on 06/23/22 0852 Buspirone HCl (Buspirone HCl) 15 Mg Tablet, 15 MG PO BID, (Reported) Entered as Reported by: OLINDA GARNICA on 05/11/22 1006 Cephalexin (Cephalexin) 500 Mg Capsule, 500 MG PO TID Prescribed by: RIA JOSHUA on 12/01/22 0209 Cholecalciferol (Vitamin D3) (Vitamin D3) 25 Mcg (1000 Unit) Capsule, 25 MCG PO DAILY, (Reported) Entered as Reported by: VELVET OVALLES on 05/19/22 1137 Cyanocobalamin (Vitamin B-12) (Vitamin B-12) 1,000 Mcg Tablet, 1,000 MCG PO DAILY, (Reported) Entered as Reported by: VELVET OVALLES on 05/19/221136 Cyclobenzaprine HCl (Cyclobenzaprine HCl) 10 Mg Tablet, 10 MG PO TID PRN for SPASMS Prescribed by: BERRY PEREIRA on 10/31/22246 Desvenlafaxine Succinate (Pristiq ER) 50 Mg Tab.er.24h, 50 MG PO DAILY, (Reported) Entered as Reported by: MARYLIN HUTCHISON on 06/23/22851 Dextromethorphan HBr/Bupropion (Auvelity ER 45-105 mg Tablet) 45 Mg-105 Mg Tab.ir.er, 1 TAB PO BID, (Reported) Entered as Reported by: SAM SHARMA on 08/15/22530 Ibuprofen (Ibuprofen) 600 Mg Tablet, 600 MG PO Q6H PRN for PAIN-MILD Prescribed by: BERRY PEREIRA on 10/31/22246 Meloxicam (Meloxicam) 15 Mg Tablet, 15 MG PO DAILY, (Reported) Entered as Reported by: MARYLIN HUTCHISON on 06/23/22851 Nicotine (Nicotine Patch) 21-14-7MG Patch.dysq, 14 MG TD DAILY, (Reported) Entered as Reported by: MARYLIN HUTCHISON on 06/23/22851 Ondansetron (Ondansetron Odt) 4 Mg Tab.rapdis, 4 MG PO Q6H PRN for NAUSEA/VOMITING Prescribed by: RIA Carson ENDILMA on 08/15/22600 Prednisone (Prednisone) 20 Mg Tab, 40 MG PO DAILY Prescribed by: RIA HEATONRT on 08/15/22600 Pregabalin (Pregabalin) 50 Mg Capsule, 50 MG PO TID, (Reported) Entered as Reported by: VELVET OVALLES on 05/19/221136 Quetiapine Fumarate (Seroquel) 200 Mg Tablet, 200 MG PO DAILY, (Reported) Entered as Reported by: MARYLIN HUTCHISON on 06/23/22851 Risperidone (Risperidone) 0.5 Mg Tablet, (Reported) Entered as Reported by: SAM SHARMA on 08/15/22530 Varenicline Tartrate (Varenicline) 0.5 Mg (11)-1 Mg (42) Tab.ds.pk, 1 EACH PO UD , (Reported) Entered as Reported by: MARYLIN Soto [facility] on 06/23/22 0852 Review of Systems Review of Systems Constitutional: No chills, No fever; malaise EENTM: no symptoms reported Respiratory: no symptoms reported Cardiovascular: no symptoms reported Gastrointestinal: no symptoms reported Genitourinary: see HPI, dysuria Musculoskeletal: see HPI, back pain Skin: No rash Psychiatric/Neurological: Anxiety; Denies Headache Past Jrfaicv-Ynawcw-Totyww Hx Immunizations Up To Date Tetanus Booster (TDap): Unknown First/Initial COVID19 Vaccinat: 2020 Second COVID19 Vaccination Mikie: NO Third COVID19 Vaccination Date: NO Seasonal Allergies Seasonal Allergies: No Past Medical History Surgery/Hospitalization HX: D&C; Depression; Bipolar; Chronic back pain; IBS; Cesearean; Lap Yudy; GERD Surgeries: Yes (D&C, EXCISION RIGHT BREAST SPIDER BITE) Section, Gallbladder Respiratory: Yes COPD Cardiac: No Neurological: No Genitourinary: No Gastrointestinal: Yes Gastroesophageal Reflux, Irritable Bowel Musculoskeletal: Yes Chronic Back Pain Endocrine: No HEENT: No Cancer: No Psychosocial: Yes (MANIC DEP W/PHYSCHOTIC FEATURE, PARONOID PERSONALITY DISORDER) Anxiety, Bipolar, Depression Integumentary: No Blood Disorders: No Family Medical History No Pertinent Family Hx Physical Exam Vital Signs Vital Signs - First Documented 12/01/22 01:13 Temp 36.7 Pulse 92 Resp 18 B/P (MAP) 156/84 (108) Pulse Ox 98 O2 Delivery Room Air Capillary Refill : Height, Weight, BMI Height: 5'4.00" Weight: 168lbs. oz. 76.200177ys; 27.00 BMI Method:Stated General Appearance: No Apparent Distress, WD/WN HEENT: PERRL/EOMI, Pharynx Normal, Moist Mucous Membranes Respiratory: Chest Non Tender, Lungs Clear, Normal Breath Sounds, No Accessory Muscle Use, No Respiratory Distress Cardiovascular: Regular Rate, Rhythm, Normal Peripheral Pulses Gastrointestinal: Normal Bowel Sounds, No Pulsatile Mass, Non Tender, Soft Back: No CVA Tenderness Extremity: Normal Capillary Refill, Normal Inspection, No Calf Tenderness, No Pedal Edema Neurologic/Psychiatric: Alert, Oriented x3, No Motor/Sensory Deficits, retail shift leader II- XII Norm as Tested Skin: Warm/Dry Progress/Results/Core Measures Suspected Sepsis SIRS Temperature: Pulse: Respiratory Rate: Laboratory Tests 12/01/22 01:20: White Blood Count 15.9H Blood Pressure / Mean: Laboratory Tests 12/01/22 01:20: Creatinine 0.68, Platelet Count 341, Total Bilirubin < 0.2 Results/Orders Lab Results Laboratory Tests Test 12/01/22 01:20 Range/Units White Blood Count 15.9 H 4.3-11.0 10^3/uL Red Blood Count 4.22 3.80-5.11 10^6/uL Hemoglobin 12.7 11.5-16.0 g/dL Hematocrit 38 35-52 % Mean Corpuscular Volume 89 80-99 fL Mean Corpuscular Hemoglobin 30 25-34 pg Mean Corpuscular Hemoglobin Concent 34 32-36 g/dL Red Cell Distribution Width 13.3 10.0-14.5 % Platelet Count 341 130-400 10^3/uL Mean Platelet Volume 10.1 9.0-12.2 fL Immature Granulocyte % (Auto) 0 % Neutrophils (%) (Auto) 66 42-75 % Lymphocytes (%) (Auto) 24 12-44 % Monocytes (%) (Auto) 6 0-12 % Eosinophils (%) (Auto) 3 0-10 % Basophils (%) (Auto) 0 0-10 % Neutrophils # (Auto) 10.5 H 1.8-7.8 10^3/uL Lymphocytes # (Auto) 3.8 1.0-4.0 10^3/uL Monocytes # (Auto) 1.0 0.0-1.0 10^3/uL Eosinophils # (Auto) 0.4 H 0.0-0.3 10^3/uL Basophils # (Auto) 0.1 0.0-0.1 10^3/uL Immature Granulocyte # (Auto) 0.1 0.0-0.1 10^3/uL Neutrophils % (Manual) 58 % Lymphocytes % (Manual) 25 % Monocytes % (Manual) 3 % Eosinophils % (Manual) 4 % Band Neutrophils 2 % Reactive Lymphocytes 8 % Platelet Estimate NORMAL Blood Morphology Comment NORMAL Urine Color YELLOW Urine Clarity CLEAR Urine pH 6.0 5-9 Urine Specific [place] <=1.005 1.016-1.022 Urine Protein NEGATIVE NEGATIVE Urine Glucose (UA) NEGATIVE NEGATIVE Urine Ketones NEGATIVE NEGATIVE Urine Nitrite NEGATIVE NEGATIVE Urine Bilirubin NEGATIVE NEGATIVE Urine Urobilinogen 0.2 < = 1.0 MG/DL Urine Leukocyte Esterase 1+ H NEGATIVE Urine RBC (Auto) 1+ H NEGATIVE Urine RBC 5-10 H /HPF Urine WBC 2-5 /HPF Urine Squamous Epithelial Cells 2-5 /HPF Urine Renal Epithelial Cells RARE /HPF Urine Crystals NONE /LPF Urine Bacteria MODERATE H /HPF Urine Casts PRESENT /LPF Urine Hyaline Casts RARE /LPF Urine Mucus SMALL H /LPF Urine Culture Indicated NO Sodium Level 140 135-145 MMOL/L Potassium Level 3.7 3.6-5.0 MMOL/L Chloride Level 107 98-107 MMOL/L Carbon Dioxide Level 22 21-32 MMOL/L Anion Gap 11 5-14 MMOL/L Blood Urea Nitrogen 14 7-18 MG/DL Creatinine 0.68 0.60-1.30 MG/DL Estimat Glomerular Filtration Rate 111 BUN/Creatinine Ratio 21 Glucose Level 105 70-105 MG/DL Calcium Level 9.8 8.5-10.1 MG/DL Corrected Calcium 9.9 8.5-10.1 MG/DL Total Bilirubin < 0.2 0.1-1.0 MG/DL Aspartate Amino Transf (AST/SGOT) 15 5-34 U/L Alanine Aminotransferase (ALT/SGPT) 10 0-55 U/L Alkaline Phosphatase 71 40-136 U/L Total Protein 6.7 6.4-8.2 GM/DL Albumin 3.9 3.2-4.5 GM/DL Lipase 37 8-78 U/L My Orders Orders - RIA JOSHUA MD Comprehensive Metabolic Panel (12/01/22 01:17) Lipase (12/01/22 01:17) Ua Culture If Indicated (12/01/22 01:17) Ed Iv/Invasive Line Start (12/01/22 01:17) Cbc With Automated Diff (12/01/22 01:17) Ns Iv 1000 Ml (Sodium Chloride 0.9%) (12/01/22 01:17) Ketorolac Injection (Toradol Injection) (12/01/22 01:17) Lorazepam Tablet (Ativan Tablet) (12/01/22 01:17) Urine Bedside (12/01/22 01:18) Orphenadrine Inj (Ed Only) (Norflex Inje (12/01/22 01:30) Manual Differential (12/01/22 01:20) Ceftriaxone Iv/Im (Ceftriaxone Iv/Im) (12/01/22 02:06) Medications Given in ED Current Medications Medications Dose Ordered Sig/Saige Route Start Time Stop Time Status Last Admin Dose Admin Orphenadrine Citrate 60 mg ONCE ONCE IV 12/01/22 01:30 12/01/22 01:31 DC 12/01/22 01:29 60 MG Vital Signs/I&O 12/01/22 01:13 Temp 36.7 Pulse 92 Resp 18 B/P (MAP) 156/84 (108) Pulse Ox 98 O2 Delivery Room Air Capillary Refill : Progress Note #1: Progress Note Potential diagnosis electrolyte imbalance, dehydration, UTI, acute exacerbation of low back pain, muscle strain. Obtain peripheral IV access and send labs for complete blood count, comprehensive metabolic profile, lipase, urinalysis. Ordered bedside test. Normal saline 1 L IV fluid bolus for hydration, Toradol 15 mg IV for pain, Norflex 60 mg IV for muscle spasms, Ativan 0.5 mg p.o. x1 to help with anxiety. Progress Note #2: Time: 01:46 Progress Note On my review of her labs her complete blood count had elevated white blood cell count to 15.9 thousand. She had a normal differential. Her hemoglobin was low normal at 12.7. Her bedside test was negative. Awaiting chemistry profile and urinalysis. Progress Note #3: Time: 02:05 Progress Note UA had LE with WBC and bacteria so will treat for UTI with dose of Rocephin 1 gm IV here in ED and then script to pharmacy for cephalexin 500 mg tid x 5 days. C omprehensive metabolic profile did not show acute electrolyte abnormality to account for her anxiety and low back pain. She did not have signs of severe dehydration. Will have her try to push fluids and rest and check with clinic and mental health if the anxiety and back pain are not improving as she treats the UTI. Departure Impression Primary Impression: Dehydration Additional Impressions: Acute exacerbation of chronic low back pain Anxiety Acute cystitis with hematuria Disposition: HOME, SELF-CARE Condition: Stable Departure-Patient Inst. Decision time for Depature: 02:09 Referrals: SELF,DEISI WHITTAKER (PCP/Family) Primary Care Physician Patient Instructions: Dehydration, Adult ED, Anxiety, Adult ED, Low Back Pain ED Add. Discharge Instructions: Continue with your chronic medications. Follow-up with the clinic if you are having continued or worsening symptoms. Try to keep pushing fluid and staying well-hydrated. Water and electrolyte drinks will help the most. Take the full course of antibiotics to treat for UTI. Check back with clinic and mental health to see if they need to adjust any of your medicine or add anything to get better relief of your symptoms. Scripts Cephalexin (Cephalexin) 500 Mg Capsule 500 MG PO TID for UTI for 5 Days, #15 CAP 0 Refills Prov: RIA JOSHUA MD 12/01/22 RIA JOSHUA MD Dec 01, 2022 01:20
[2022-12-01] MEDS ORDERED: ORPHENADRINE 60 MG/2 ML (NORFLEX) AMP (ED ONLY) IV ONE (01:30)
[2022-12-01 01:34] LABS: BASOPHILS # (AUTO) 0.1 10^3/uL (0.0-0.1); BASOPHILS % (AUTO) 0 % (0-10); EOSINOPHILS # (AUTO) 0.4 10^3/uL (0.0-0.3); EOSINOPHILS % (AUTO) 3 % (0-10); HEMATOCRIT 38 % (35-52); HEMOGLOBIN 12.7 g/dL (11.5-16.0); LYMPHOCYTES # (AUTO) 3.8 10^3/uL (1.0-4.0); LYMPHOCYTES % (AUTO) 24 % (12-44); MEAN CORPUSCULAR HEMOGLOBIN 30 pg (25-34); MEAN CORPUSCULAR HGB CONC 34 g/dL (32-36); MEAN CORPUSCULAR VOLUME 89 fL (80-99); MEAN PLATELET VOLUME 10.1 fL (9.0-12.2); MONOCYTES % (AUTO) 6 % (0-12); NEUTROPHILS # (AUTO) 10.5 10^3/uL (1.8-7.8); NEUTROPHILS % (AUTO) 66 % (42-75); PLATELET COUNT 341 10^3/uL (130-400); WHITE BLOOD COUNT 15.9 10^3/uL (4.3-11.0)
[2022-12-01 01:36] LABS: BILIRUBIN,URINE NEGATIVE (NEGATIVE); CLARITY,URINE CLEAR; COLOR,URINE YELLOW; GLUCOSE, URINE (UA) NEGATIVE (NEGATIVE); KETONES,URINE NEGATIVE (NEGATIVE); LEUKOCYTE ESTERASE ,URINE 1+ (NEGATIVE); NITRITE,URINE NEGATIVE (NEGATIVE); PROTEIN,URINE NEGATIVE (NEGATIVE)
[2022-12-01 01:56] LABS: BACTERIA,URINE MODERATE /HPF; HYALINE CASTS, URINE RARE /LPF; RENAL EPITHELIAL CELLS,URINE RARE /HPF
[2022-12-01 01:58] LABS: BAND NEUTROPHILS 2 %; EOSINOPHILS % (MANUAL) 4 %; LYMPHOCYTES % (MANUAL) 25 %; MONOCYTES % (MANUAL) 3 %; NEUTROPHILS % (MANUAL) 58 %; PLATELET ESTIMATE NORMAL; RBC MORPH NORMAL; REACTIVE LYMPHOCYTES 8 %
[2022-12-01 02:02] LABS: ALANINE AMINOTRANSFERASE 10 U/L (0-55); ALBUMIN 3.9 GM/DL (3.2-4.5); ALKALINE PHOSPHATASE 71 U/L (40-136); BUN/CREATININE RATIO 21; CALCIUM 9.8 MG/DL (8.5-10.1); CARBON DIOXIDE 22 MMOL/L (21-32); CHLORIDE 107 MMOL/L (98-107); CREATININE SERUM 0.68 MG/DL (0.60-1.30); GFR ESTIMATED 111; GLUCOSE 105 MG/DL (70-105); LIPASE 37 U/L (8-78); POTASSIUM 3.7 MMOL/L (3.6-5.0); SODIUM 140 MMOL/L (135-145); TOTAL PROTEIN 6.7 GM/DL (6.4-8.2)
[2022-12-01 02:03] LABS: BILIRUBIN,TOTAL < 0.2 MG/DL (0.1-1.0)
[2022-12-01] MEDS ORDERED: cefTRIAXone IV/IM 1,000 MG in NS (IVPB) 50 ML 50 ML IV STA (02:06)
[2022-12-01] MEDS ORDERED: CEPH500C PO ×2 (02:09→02:17)
[2022-12-01 02:18] VITALS: BP 124/71
== END 2022-12-01 02:19 | disposition home or self-care (01) ==
LOC: EDUNIT# 01:10 → ER FS 01:12
DX: F41.9 Anxiety disorder, unspecified (principal); E86.0 Dehydration; M54.50 Low back pain, unspecified; G89.29 Other chronic pain; N30.01 Acute cystitis with hematuria; Z28.310 Unvaccinated for COVID-19; Z88.2 Allergy status to sulfonamides
CPT/HCPCS: 36415; 80053; 81000; 83690; 84703; 85007; 85027; 96361; 96374; 96375

== ENCOUNTER 2023-01-03 12:15 | Emergency (ER) | payer MEDICAID, OTHER ==
[~2023-01-03 12:15] MED LIST changes: +CEPH500C PO
[2023-01-03] MEDS ORDERED: METH4TAB10 PO (12:32)
[2023-01-03] MEDS ORDERED: DOXY100T2 PO (12:32)
--- NOTE | 2023-01-03 12:32 | ED Cough/URI ---
General Chief Complaint: Cough/Cold/Flu Symptoms Stated Complaint: COUGH; SOB Source: patient Exam Limitations: no limitations History of Present Illness Date Seen by Provider: Jan 03, 2023 Time Seen by Provider: 12:20 Initial Comments 42-year-old female with past medical history most notable for COPD and continued smoking coming in due to 4 days of productive cough, dyspnea, in the setting of her son being sick with a viral illness recently. Has not taken any oral medications for it. Has been using her inhalers at home which has been helping somewhat. Otherwise denying any chest pain, fever, abdominal pain, nausea, vomiting, diarrhea, weakness, numbness, or any other concerns Allergies and Home Medications Allergies Coded Allergies: sulfamethoxazole (Verified Allergy, Unknown, RASH, 05/11/22) trimethoprim (Verified Allergy, Unknown, RASH, 05/11/22) Patient Home Medication List Home Medication List Reviewed: Yes Albuterol Sulfate (Ventolin Hfa) 1 Puff Puff, 2 PUFF INH Q4H, (Reported) Entered as Reported by: MARYLIN HUTCHISON on 06/23/22 0852 Buspirone HCl (Buspirone HCl) 15 Mg Tablet, 15 MG PO BID, (Reported) Entered as Reported by: OLINDA GARNICA on 05/11/22 1006 Cephalexin (Cephalexin) 500 Mg Capsule, 500 MG PO TID Prescribed by: RIA JOSHUA on 12/01/22 0217 Cholecalciferol (Vitamin D3) (Vitamin D3) 25 Mcg (1000 Unit) Capsule, 25 MCG PO DAILY, (Reported) Entered as Reported by: VELVET OVALLES on 05/19/22 1137 Cyanocobalamin (Vitamin B-12) (Vitamin B-12) 1,000 Mcg Tablet, 1,000 MCG PO DAILY, (Reported) Entered as Reported by: VELVET OVALLES on 05/19/22 1137 Cyclobenzaprine HCl (Cyclobenzaprine HCl) 10 Mg Tablet, 10 MG PO TID PRN for SPASMS Prescribed by: BERRY PEREIRA on 10/31/22 0247 Desvenlafaxine Succinate (Pristiq ER) 50 Mg Tab.er.24h, 50 MG PO DAILY, (Reported) Entered as Reported by: MARYLIN HUTCHISON on 06/23/22 0852 Dextromethorphan HBr/Bupropion (Auvelity ER 45-105 mg Tablet) 45 Mg-105 Mg Tab.ir.er, 1 TAB PO BID, (Reported) Entered as Reported by: SAM SHARMA on 08/15/22 05 Doxycycline Hyclate (Doxycycline Hyclate) 100 Mg Tablet, 100 MG PO BID Prescribed by: BERRY PEREIRA on 01/03/23 1232 Ibuprofen (Ibuprofen) 600 Mg Tablet, 600 MG PO Q6H PRN for PAIN-MILD Prescribed by: BERRY PEREIRA on 10/31/22 0247 Meloxicam (Meloxicam) 15 Mg Tablet, 15 MG PO DAILY, (Reported) Entered as Reported by: MARYLIN HUTCHISON on 06/23/22 08 Methylprednisolone (Methylprednisolone Dose Pack) 4 Mg Tab.ds.pk, 4 MG PO UD Prescribed by: BERRY PEREIRA on 01/03/23 1232 Nicotine (Nicotine Patch) 21-14-7MG Patch.dysq, 14 MG TD DAILY, (Reported) Entered as Reported by: MARYLIN HUTCHISON on 06/23/22851 Ondansetron (Ondansetron Odt) 4 Mg Tab.rapdis, 4 MG PO Q6H PRN for NAUSEA/VOMITING Prescribed by: RIA JOSHUA on 08/15/22 06 Prednisone (Prednisone) 20 Mg Tab, 40 MG PO DAILY Prescribed by: RAI JOSHUA on 08/15/22600 Pregabalin (Pregabalin) 50 Mg Capsule, 50 MG PO TID, (Reported) Entered as Reported by: VELVET OVALLES on 05/19/22 1137 Quetiapine Fumarate (Seroquel) 200 Mg Tablet, 200 MG PO DAILY, (Reported) Entered as Reported by: MARYLIN HUTCHISON on 06/23/22 08 Risperidone (Risperidone) 0.5 Mg Tablet, (Reported) Entered as Reported by: SAM SHARMA on 08/15/22 05 Varenicline Tartrate (Varenicline) 0.5 Mg (11)-1 Mg (42) Tab.ds.pk, 1 EACH PO UD, (Reported) Entered as Reported by: MARYLIN HUTCHISON on 06/23/22 0852 Review of Systems Review of Systems Constitutional: no symptoms reported EENTM: nose congestion Respiratory: cough Cardiovascular: no symptoms reported Gastrointestinal: no symptoms reported Genitourinary: no symptoms reported Musculoskeletal: no symptoms reported Skin: no symptoms reported Psychiatric/Neurological: No Symptoms Reported Hematologic/Lymphatic: No Symptoms Reported Past Uiivuvw-Xfphpu-Deyysv Hx Patient Social History Tobacco Use?: Yes Tobacco type used: Cigarettes Smoking Status: Current Everyday Smoker Substance use?: No Alcohol Use?: Yes Alcohol Frequency: Once in a while Pt feels they are or have been: No Immunizations Up To Date Tetanus Booster (TDap): Unknown First/Initial COVID19 Vaccinat: 2020 Second COVID19 Vaccination Mikie: NO Third COVID19 Vaccination Date: NO Seasonal Allergies Seasonal Allergies: No Past Medical History Surgery/Hospitalization HX: D&C; Depression; Bipolar; Chronic back pain; IBS; Cesearean; Lap Yudy; GERD; COPD Surgeries: Yes (D&C, EXCISION RIGHT BREAST SPIDER BITE) Section, Gallbladder Respiratory: Yes COPD Cardiac: No Neurological: No Genitourinary: No Gastrointestinal: Yes Gastroesophageal Reflux, Irritable Bowel Musculoskeletal: Yes Chronic Back Pain Endocrine: No HEENT: No Cancer: No Psychosocial: Yes (MANIC DEP W/PHYSCHOTIC FEATURE, PARONOID PERSONALITY DISORDER) Anxiety, Bipolar, Depression Integumentary: No Blood Disorders: No Family Medical History No Pertinent Family Hx Physical Exam Vital Signs - First Documented 01/03/23 12:20 Temp 37.0 Pulse 100 Resp 16 B/P (MAP) 141/98 (112) Pulse Ox 99 O2 Delivery Room Air Capillary Refill : Height: 5'4.00" Weight: 168lbs. oz. 76.292717ng; 27.00 BMI Method:Stated General Appearance: WD/WN, no apparent distress Eyes: Bilateral Eye Normal Inspection HEENT: PERRL/EOMI, normal ENT inspection, pharynx normal Neck: non-tender, full range of motion, supple, normal inspection Respiratory: chest non-tender, lungs clear, normal breath sounds, no respiratory distress, no accessory muscle use Cardiovascular: regular rate, rhythm, no edema Gastrointestinal: normal bowel sounds, non tender, soft Extremities: normal range of motion, non-tender, normal inspection, no pedal edema, no calf tenderness, normal capillary refill Neurologic/Psychiatric: no motor/sensory deficits, alert, normal mood/affect Skin: normal color, warm/dry Progress/Results/Core Measures Suspected Sepsis SIRS Temperature: Pulse: Respiratory Rate: Blood Pressure / Mean: Results/Orders Lab Results Laboratory Tests Test 01/03/23 12:24 Range/Units My Orders Orders - BERRY PEREIRA MD Influenza A And B By Pcr (01/03/23 12:24) Covid 19 Inhouse Test (01/03/23 12:24) Chest 1 View Ap/Pa Only (01/03/23 12:24) Vital Signs/I&O 01/03/23 12:20 Temp 37.0 Pulse 100 Resp 16 B/P (MAP) 141/98 (112) Pulse Ox 99 O2 Delivery Room Air Capillary Refill : Progress Note : Progress Note 42-year-old female with above history coming in due to productive cough in the setting of being around an ill family member recently. ABCs were intact and vitals were stable on presentation. Physical exam reassuring and she is well- appearing. Flu and COVID testing sent and are pending, I will call the patient with the results. Chest x-ray ordered and interpreted by me showing no obvious pneumonia, no pneumothorax, normal cardiac silhouette. Patient symptoms given the more productive cough with colored sputum in the setting of her COPD history and smoking is consistent with a COPD exacerbation as well. We will start her on steroids and antibiotics for this. I believe she is stable for discharge with outpatient follow-up. She was sent home with strict return precautions Diagnostic Imaging Diagonstic Imaging: Xray (chest) Comments [facility], [place] NAME: JACOBY CARRASQUILLO [facility] REC#: [id number] PT STATUS: REG ER : 1980 PHYSICIAN: BERRY PEREIRA MD ADMIT DATE: 01/03/23/ER FS Draft Date of Exam:01/03/23 CHEST 1 VIEW AP/PA ONLY INDICATION: Cough and shortness of breath. Frontal chest obtained at 12:32 p.m. compared to 08/15/2022. Heart and mediastinal silhouette are normal in appearance. The lungs are clear. There is no pneumothorax or pleural fluid. IMPRESSION: Negative chest. Dictated on workstation # [id number] Dict: 01/03/23 1248 Trans: 01/03/23 1253 [id number] Interpreted by: CHARBEL OROURKE MD Electronically signed by: Departure Impression Primary Impression: COPD exacerbation Additional Impression: Person under investigation for COVID-19 Disposition: 01 HOME, SELF-CARE Condition: Stable Departure-Patient Inst. Decision time for Depature: 13:05 Referrals: SELFDEISI MD (PCP/Family) Primary Care Physician Patient Instructions: COPD Exacerbation, Adult ED Add. Discharge Instructions: This seems consistent with an exacerbation of your COPD. Antibiotics and steroids were sent to your pharmacy for this. Please follow-up with your regular doctor if you are not seeing improvement after the next week. We will call you with the results to your COVID and flu testing. Scripts Doxycycline Hyclate (Doxycycline Hyclate) 100 Mg Tablet 100 MG PO BID for 5 Days, #10 TAB 0 Refills Prov: BERRY PEREIRA MD 01/03/23 Methylprednisolone (Methylprednisolone Dose Pack) 4 Mg Tab.ds.pk 4 MG PO UD for 6 Days, #21 PKG PER DOSE PACK INSTRUCTIONS Prov: BERRY PEREIRA MD 01/03/23 Work/School Note: Work Release Form Date Seen in the Emergency Department: Jan 03, 2023 Return to Work: Jan 05, 2023 Restrictions: Return-No Fever (24hrs) BERRY PEREIRA MD Jan 03, 2023 12:32
--- NOTE | 2023-01-03 12:53 | Diagnostic Imaging Report ---
INDICATION: Cough and shortness of breath. Frontal chest obtained at 12:32 p.m. compared to 08/15/2022. Heart and mediastinal silhouette are normal in appearance. The lungs are clear. There is no pneumothorax or pleural fluid. IMPRESSION: Negative chest. Dictated by: Dictated on workstation # [id number]
[2023-01-03 13:02] VITALS: BP 141/98
== END 2023-01-03 13:02 | disposition home or self-care (01) ==
LOC: EDUNIT# 12:15 → ER FS 12:16
DX: J44.1 Chronic obstructive pulmonary disease with (acute) exacerbation (principal); F17.210 Nicotine dependence, cigarettes, uncomplicated; Z20.822 Contact with and (suspected) exposure to COVID-19
CPT/HCPCS: 71045; 87636